=== PATIENT | male | born 1960 | race Caucasian/White ===

== ENCOUNTER 2018-04-16 22:23 | Emergency (ER) | payer OTHER, MEDICAID ==
[~2018-04-16] VITALS: Ht 188 cm; Wt 117.0 kg
[~2018-04-16 22:23] MED LIST: ACET500C PO; ALBU2TAB4 IN; CHOL10009 PO; CYA100I PO; DIVA250T3 PO; FLUN0.02; FOLI1TAB6 PO; LACTCAP3 PO; METH2.5T3 PO; METO-159 PO; OMEP20CA74 OR; TRAM50TA2 PO
[2018-04-16 22:27] VITALS: BP 128/93
== END 2018-04-17 01:07 | disposition home or self-care (01) ==
LOC: ER 22:23
DX: S62.634A Displaced fracture of distal phalanx of right ring finger, initial encounter for closed fracture (principal); E11.9 Type 2 diabetes mellitus without complications; I10 Essential (primary) hypertension; F17.210 Nicotine dependence, cigarettes, uncomplicated; Z88.2 Allergy status to sulfonamides; Z88.8 Allergy status to other drugs, medicaments and biological substances; Z79.899 Other long term (current) drug therapy; W18.39XA Other fall on same level, initial encounter; Y93.01 Activity, walking, marching and hiking; Y99.8 Other external cause status; Y92.89 Other specified places as the place of occurrence of the external cause
CPT/HCPCS: 29130; 73130

== ENCOUNTER 2019-03-02 13:05 | Emergency (ER) | payer MEDICAID, OTHER ==
[2019-03-02 13:15] VITALS: BP 152/82
== END 2019-03-02 15:23 | disposition home or self-care (01) ==
LOC: ER 13:05 → EDBD 13:05 → ER 15:23
DX: M25.562 Pain in left knee (principal); M25.561 Pain in right knee; M19.90 Unspecified osteoarthritis, unspecified site; E11.9 Type 2 diabetes mellitus without complications; E78.5 Hyperlipidemia, unspecified; I10 Essential (primary) hypertension; F17.210 Nicotine dependence, cigarettes, uncomplicated; Z88.8 Allergy status to other drugs, medicaments and biological substances; Z88.2 Allergy status to sulfonamides; Z79.899 Other long term (current) drug therapy; W18.40XA Slipping, tripping and stumbling without falling, unspecified, initial encounter; Y93.89 Activity, other specified; Y99.8 Other external cause status; Y92.89 Other specified places as the place of occurrence of the external cause
CPT/HCPCS: 73562

== ENCOUNTER 2020-03-14 20:38 | Emergency (ER) | payer MEDICAID, OTHER ==
[~2020-03-14] VITALS: Ht 188 cm; Wt 114.3 kg
[~2020-03-14 20:38] MED LIST changes: +DIVA250T12 PO; -DIVA250T3 PO; +METH2.5T PO; -METH2.5T3 PO
[2020-03-14] MEDS ORDERED: SODIUM CHLORIDE 0.9% 1,000 ML IV ONE (23:15)
[2020-03-14] MEDS ORDERED: ACETAMINOPHEN 325 MG TAB PO ONE (23:15)
[2020-03-14] MEDS ORDERED: cefTRIAXone 1GM/50ML D5W 50 ML IV ONE (23:15)
[2020-03-14 23:45] LABS: Basophils # (auto) 0.1 10 ^3/uL (0-0.2); Basophils % (auto) 0.6 % (0.0-2.0); Eosinophils # (auto) 0.3 10 ^3/uL (0-0.8); Eosinophils % (auto) 3.3 % (0.0-7.0); Hematocrit 38.7 % (41.0-53.0); Hemoglobin 12.9 g/dL (13.5-17.5); Lymphocytes # (auto) 2.9 10 ^3/uL (0.4-5.4); Lymphocytes % (auto) 28.6 % (10.0-50.0); Mean Corpuscular Hemoglobin 31.6 pg (28.0-32.0); Mean Corpuscular Hgb Conc. 33.5 g/dL (32.0-36.0); Mean Corpuscular Volume 94.5 fL (80.0-100.0); Monocytes # (auto) 0.9 10 ^3/uL (0-1.3); Monocytes % (auto) 8.5 % (0.0-12.0); Nucleated Red Blood Cells % 0.1 %; Platelet Count (auto) 451 10^3/uL (140-450); Red Blood Cells 4.09 10^6/uL (4.5-5.90); Red Cell Distribution Width 14.9 % (11.8-14.3); White Blood Cell 10.2 10^3/uL (4.4-10.8)
[2020-03-14 23:55] LABS: Albumin 3.8 g/dL (3.4-5.0); Calcium 10.3 mg/dL (8.5-10.1); Potassium 4.1 mmol/L (3.5-5.1)
[2020-03-14 23:58] LABS: BUN/Creatinine Ratio 27.5; Bilirubin, Total 0.3 mg/dL (0.2-1.0); Total Protein 9.1 g/dL (6.4-8.2)
[2020-03-15 01:57] VITALS: BP 123/48
== END 2020-03-15 02:14 | disposition home or self-care (01) ==
LOC: ER 20:38
DX: L03.113 Cellulitis of right upper limb (principal); E11.9 Type 2 diabetes mellitus without complications; I10 Essential (primary) hypertension; E78.5 Hyperlipidemia, unspecified; F17.210 Nicotine dependence, cigarettes, uncomplicated; Z88.2 Allergy status to sulfonamides; Z88.8 Allergy status to other drugs, medicaments and biological substances
CPT/HCPCS: 36415; 73200; 80053; 82962; 85025; 96365; 99284; J0696; J7030

== ENCOUNTER → 2021-11-08 | Day surgery (SDC) | payer MEDICARE, OTHER ==
[2021-11-04 13:59] LABS: Basophils # (auto) 0.1 10 ^3/uL (0-0.2); Eosinophils # (auto) 0.2 10 ^3/uL (0-0.8); Eosinophils % (auto) 4.2 % (0.0-7.0); Hematocrit 37.4 % (41.0-53.0); Hemoglobin 12.8 g/dL (13.5-17.5); Lymphocytes % (auto) 34.9 % (10.0-50.0); Mean Corpuscular Hgb Conc. 34.2 g/dL (32.0-36.0); Mean Corpuscular Volume 96.6 fL (80.0-100.0); Monocytes # (auto) 0.6 10 ^3/uL (0-1.3); Monocytes % (auto) 9.8 % (0.0-12.0); Neutrophils # (auto) 2.9 10 ^3/uL (1.6-8.6); Neutrophils % (auto) 50.1 % (37.0-80.0); Nucleated Red Blood Cells % 0.1 %; Red Blood Cells 3.88 10^6/uL (4.5-5.90); Red Cell Distribution Width 14.7 % (11.8-14.3); White Blood Cell 5.8 10^3/uL (4.4-10.8)
[2021-11-04 14:04] LABS: Urine Bacteria NONE SEEN /hpf (None Seen); Urine Blood Negative /uL (Negative); Urine Mucus FEW (None Seen); Urine Specific Gravity 1.027 (1.001-1.035); Urine WBC 1 /hpf (0 - 3)
[2021-11-04 14:14] LABS: INR 1.04 (0.9-1.15); Partial Thromboplastin Time 24.3 sec (23.6-33.0)
[2021-11-04 14:45] LABS: Albumin 3.5 g/dL (3.4-5.0); BUN/Creatinine Ratio 15.4; Calcium 8.9 mg/dL (8.5-10.1)
[2021-11-04 14:47] LABS: Bilirubin, Total 0.5 mg/dL (0.2-1.0); Total Protein 7.3 g/dL (6.4-8.2)
[~2021-11-08] VITALS: Ht 188 cm; Wt 107.0 kg
[~2021-11-08] MED LIST changes: +ALBUAER3 IN; +ARTISOL13 EACHEYE; +ASPI1TAB20 PO; +ATOR20TA PO; +CERT200K SC; +CHLO4SOL EX; +DOXY-112 PO; +DULO60CA PO; +FLUT110A IN; +FOLITAB22 OR; +GABA300C10 PO; +GLIP-204 PO; +HYD25TP PR; +HYDROIN8 EX; +INSLANTI SC; +LACT12LO26 EX; +LIDO5DIS21 TOP; +LISI20TA28 PO; +METF-370 PO; +MULT-1018 OR; +OMEG1CAP68 PO; +OMEP20TA PO; +OXY10CRT PO; +TRIA0.1O EX; +[UNRECOGNIZED DRUG - CODE] EX; +[UNRECOGNIZED DRUG - CODE] EX; +ceFAZolin 1GM/50ML 50 ML IV ONE
== END | disposition home or self-care (01) ==
LOC: SUR 07:31
PROVIDERS: ATTEND Orthopaedic Surgery
DX: M16.11 Unilateral primary osteoarthritis, right hip (principal); I10 Essential (primary) hypertension; E78.5 Hyperlipidemia, unspecified; E11.9 Type 2 diabetes mellitus without complications; J44.9 Chronic obstructive pulmonary disease, unspecified; Z79.899 Other long term (current) drug therapy; R42 Dizziness and giddiness; M07.69 Enteropathic arthropathies, multiple sites; R69 Illness, unspecified; Z20.822 Contact with and (suspected) exposure to COVID-19; Z72.0 Tobacco use; Z96.641 Presence of right artificial hip joint; Z01.812 Encounter for preprocedural laboratory examination; Z79.01 Long term (current) use of anticoagulants
CPT/HCPCS: 36415; 80053; 81001; 82962; 85025; 85610; 85730; 86850; 86900; 86901; J0690; U0003

== ENCOUNTER 2022-01-31 09:59 | Inpatient (IN) | payer MEDICARE, MEDICAID ==
[2022-01-30 12:38] LABS: Basophils # (auto) 0 10 ^3/uL (0-0.2); Basophils % (auto) 0.7 % (0.0-2.0); Eosinophils # (auto) 0.4 10 ^3/uL (0-0.8); Eosinophils % (auto) 7.6 % (0.0-7.0); Hematocrit 41.3 % (41.0-53.0); Hemoglobin 13.4 g/dL (13.5-17.5); Lymphocytes # (auto) 2.1 10 ^3/uL (0.4-5.4); Mean Corpuscular Hemoglobin 31.3 pg (28.0-32.0); Mean Corpuscular Hgb Conc. 32.4 g/dL (32.0-36.0); Mean Corpuscular Volume 96.7 fL (80.0-100.0); Monocytes # (auto) 0.5 10 ^3/uL (0-1.3); Monocytes % (auto) 8.3 % (0.0-12.0); Neutrophils # (auto) 2.7 10 ^3/uL (1.6-8.6); Neutrophils % (auto) 47.4 % (37.0-80.0); Red Blood Cells 4.27 10^6/uL (4.5-5.90); White Blood Cell 5.8 10^3/uL (4.4-10.8)
[2022-01-30 12:47] LABS: Urine Bacteria NONE SEEN /hpf (None Seen); Urine Blood Negative /uL (Negative); Urine Mucus FEW (None Seen); Urine Specific Gravity 1.027 (1.001-1.035); Urine WBC 1 /hpf (0 - 3)
[2022-01-30 13:00] LABS: INR 0.96 (0.9-1.15); Partial Thromboplastin Time 24.7 sec (24.6-33.4)
[2022-01-30 13:05] LABS: Albumin 3.8 g/dL (3.4-5.0); Calcium 9.2 mg/dL (8.5-10.1); Potassium 4.1 mmol/L (3.5-5.1)
[2022-01-30 13:09] LABS: BUN/Creatinine Ratio 17.8; Bilirubin, Total 0.6 mg/dL (0.2-1.0); Total Protein 7.8 g/dL (6.4-8.2)
[~2022-01-31] VITALS: Ht 188 cm; Wt 107.1 kg
[~2022-01-31 09:59] MED LIST changes: -ceFAZolin 1GM/50ML 50 ML IV ONE
[2022-01-31] MEDS ORDERED: TRANEXAMIC ACID 20 ML ONE (10:12)
[2022-01-31] MEDS ORDERED: ceFAZolin 1GM VL ONE (10:12)
[2022-01-31] MEDS: EPINEPHrine HCL 1 MG/1 ML AMP ONE ×2 (10:13→11:40)
[2022-01-31] MEDS ORDERED: VANCOMYCIN HCL 1000 MG VL ONE (10:14)
[2022-01-31] MEDS ORDERED: ceFAZolin 1GM/50ML 100 ML IV ONE (10:22)
[2022-01-31] MEDS: ROPIVACAINE 0.5% (5MG/ML) 20ML AMPULE IJ ONE ×2 (10:41→12:02)
[2022-01-31] MEDS ORDERED: TETRACAINE 1% INJ 2 ML VIAL IJ ONE (10:41)
[2022-01-31] MEDS ORDERED: MIDAZOLAM HCL 2MG/2ML 2ml VIAL (1mg/ml) ONE ×2 (10:48→12:06)
[2022-01-31] MEDS ORDERED: fentaNYL CITRATE 100 MCG/2 ML VL ONE (10:48)
[2022-01-31] MEDS ORDERED: MORPHINE SULF PF 5 MG/10 ML VIAL ONE (10:57)
[2022-01-31] MEDS ORDERED: NALBUPHINE HCL 10 MG/1ml INJECTION SUBCUT ONE (11:30)
[2022-01-31] MEDS ORDERED: NALOXONE HCL 0.4 MG/ML VIAL IV PRN (11:30)
[2022-01-31] MEDS: SODIUM CHLORIDE 0.9% 1,000 ML IV SCH ×2 (11:30→19:30)
[2022-01-31] MEDS ORDERED: ePHEDrine SULFATE 50 MG/ML AMP IV PRN (11:30)
[2022-01-31] MEDS ORDERED: DexAMETHasone SOD PHOS 10MG/1ML VIAL INJ IV PRN (11:30)
[2022-01-31] MEDS ORDERED: ONDANSETRON HCL 4 MG/2 ML VIAL IV PRN ×2 (11:30→13:30)
[2022-01-31] MEDS ORDERED: LABETALOL HCL 5 MG/ML 4ML SYRINGE IV PRN (11:30)
[2022-01-31] MEDS ORDERED: ACCU-CHEK COMFORT CURVE STRIP VI ONE (11:30)
[2022-01-31] MEDS ORDERED: hydrALAZINE HCL 20 MG/ML VL IV PRN (11:30)
[2022-01-31] MEDS ORDERED: oxyCODONE HCL 5MG TAB PO PRN ×2 (11:30)
[2022-01-31] MEDS ORDERED: HYDROmorphone HCL 2 MG/ML VL/or syr IV PRN ×2 (11:30→14:00)
[2022-01-31] MEDS ORDERED: diphenhdrAMINE HCL 50 MG/1 ML VL IV PRN (11:30)
[2022-01-31] MEDS ORDERED: MIDAZOLAM HCL 2MG/2ML 2ml VIAL (1mg/ml) IV PRN (11:30)
[2022-01-31] MEDS ORDERED: PROPOFOL 10 MG/ML 20 ML IV ONE (12:05)
[2022-01-31] MEDS ORDERED: DexAMETHasone SOD PHOS 10MG/1ML VIAL INJ ONE (12:05)
[2022-01-31] MEDS ORDERED: ALBUTEROL SULF 2.5 MG/0.5ML(0.5%) NEB SOLN NEB PRN (13:30)
[2022-01-31] MEDS ORDERED: ALBUTEROL SULF HFA 90MCG INH 200DOSE IN SCH (13:30)
[2022-01-31] MEDS: GABAPENTIN 300 MG CAP PO SCH ×2 (14:00→22:02)
[2022-01-31 17:54] VITALS: BP 151/101
[2022-01-31] MEDS ORDERED: ARTIFICIAL TEAR EACHEYE PRN (18:00)
[2022-01-31] MEDS: KETOROLAC TROMETH 30 MG/ML 1ML VIAL IV SCH ×2 (19:00→23:52)
[2022-01-31] MEDS: ACETAMINOPHEN 325 MG TAB PO SCH ×2 (19:01→23:59)
[2022-01-31] MEDS: ceFAZolin 2 GM in D5W 5% 100 ML IV SCH (19:15)
[2022-01-31 20:00] VITALS: BP 147/92
[2022-01-31 21:00] VITALS: BP 138/91
[2022-01-31 22:00] VITALS: BP_SYST 128; BP_SYST 137; BP_DIAS 82; BP_DIAS 83
[2022-01-31] MEDS ORDERED: ATORVASTATIN 20 MG TAB PO SCH (22:00)
[2022-01-31] MEDS ORDERED: PATIENTS OWN MEDICATION (Divalproex Sodium 250 MG) PO SCH (22:00)
[2022-01-31] MEDS ORDERED: OMEPRAZOLE 20MG/10ML ORAL SUSP PO SCH (22:00)
[2022-01-31] MEDS ORDERED: PATIENTS OWN MEDICATION (Metoprolol Tartrate 100 MG) PO SCH (22:00)
[2022-01-31] MEDS ORDERED: GLIPIZIDE 5 MG PO SCH (22:00)
[2022-01-31] MEDS: METOPROLOL TARTRATE 50 MG TAB PO SCH (22:03)
[2022-01-31] MEDS: glipiZIDE 5 MG TAB PO SCH (22:03)
[2022-01-31] MEDS: metFORMIN HYDROCHLORIDE 500 MG TAB PO SCH (22:04)
[2022-01-31 23:00] VITALS: BP 132/84
[2022-02-01] VITALS (17 sets, daily range): BP systolic 108–169; BP diastolic 8–114
[2022-02-01] MEDS: ceFAZolin 2 GM in D5W 5% 100 ML IV SCH (02:54)
[2022-02-01] MEDS: SODIUM CHLORIDE 0.9% 1,000 ML IV SCH ×2 (03:30→04:30)
[2022-02-01] MEDS: KETOROLAC TROMETH 30 MG/ML 1ML VIAL IV SCH ×2 (05:40→11:57)
[2022-02-01] MEDS: ACETAMINOPHEN 325 MG TAB PO SCH ×2 (05:40→11:57)
[2022-02-01] MEDS: GABAPENTIN 300 MG CAP PO SCH ×2 (05:40→13:32)
[2022-02-01 07:24] LABS: Basophils # (auto) 0 10 ^3/uL (0-0.2); Basophils % (auto) 0.1 % (0.0-2.0); Eosinophils # (auto) 0 10 ^3/uL (0-0.8); Eosinophils % (auto) 0.1 % (0.0-7.0); Hematocrit 31.7 % (41.0-53.0); Hemoglobin 10.5 g/dL (13.5-17.5); Lymphocytes # (auto) 1.1 10 ^3/uL (0.4-5.4); Lymphocytes % (auto) 9.7 % (10.0-50.0); Mean Corpuscular Hemoglobin 31.4 pg (28.0-32.0); Mean Corpuscular Hgb Conc. 33.1 g/dL (32.0-36.0); Mean Corpuscular Volume 94.8 fL (80.0-100.0); Monocytes # (auto) 1.1 10 ^3/uL (0-1.3); Monocytes % (auto) 9.7 % (0.0-12.0); Neutrophils # (auto) 8.9 10 ^3/uL (1.6-8.6); Neutrophils % (auto) 80.4 % (37.0-80.0); Nucleated Red Blood Cells % 0.1 %; Red Blood Cells 3.34 10^6/uL (4.5-5.90); Red Cell Distribution Width 13.7 % (11.8-14.3)
[2022-02-01 07:57] LABS: Potassium 4.1 mmol/L (3.5-5.1)
[2022-02-01] MEDS: metFORMIN HYDROCHLORIDE 500 MG TAB PO SCH (09:40)
[2022-02-01] MEDS: glipiZIDE 5 MG TAB PO SCH (09:40)
[2022-02-01] MEDS: METOPROLOL TARTRATE 50 MG TAB PO SCH (09:41)
[2022-02-01] MEDS ORDERED: APIXABAN 2.5 MG TAB PO SCH (10:00)
[2022-02-01] MEDS ORDERED: PATIENTS OWN MEDICATION (Duloxetine Hcl (Cymbalta) 60 MG) PO SCH (10:00)
[2022-02-01] MEDS ORDERED: PANTOPRAZOLE 40 MG TAB PO SCH (10:00)
[2022-02-01] MEDS ORDERED: CYANOCOBALAMIN (B-12) 1000 MCG/1 ML VIAL SUBCUT SCH (10:00)
[2022-02-01] MEDS ORDERED: PATIENTS OWN MEDICATION (Folic Acid 1 MG) PO SCH (10:00)
[2022-02-01] MEDS ORDERED: LIDOCAINE 5% TOPICAL PATCH TOP SCH (10:00)
[2022-02-01] MEDS ORDERED: FOLIC ACID 1 MG TAB PO SCH (10:00)
[2022-02-01] MEDS ORDERED: DOXYCYCLINE MONOHYDRATE 50 MG PO SCH (10:00)
[2022-02-01] MEDS ORDERED: DULoxetine HCL 30 MG CAP PO SCH (10:00)
[2022-02-01] MEDS ORDERED: LISINOPRIL 20 MG TAB PO SCH (10:00)
[2022-02-01] MEDS ORDERED: CYANOCOBALAMIN SC SCH (10:00)
[2022-02-01] MEDS ORDERED: FLUTICASONE PROPIONATE IN SCH (10:00)
== END 2022-02-01 15:06 | disposition home health service (06) | DRG 470 ==
LOC: SUR 09:59 → OVERFLOW 13:33 → TELE 14:02 → TELE-WESTW 17:15
PROVIDERS: ADMIT Orthopaedic Surgery; ATTEND Orthopaedic Surgery
PROC: 0SR903Z Replacement of Right Hip Joint with Ceramic Synthetic Substitute, Open Approach (ICD-10-PCS; principal; 2022-01-31 10:57)
DX: M16.11 Unilateral primary osteoarthritis, right hip (principal); I10 Essential (primary) hypertension
CPT/HCPCS: 36415; 72170; 73501; 76000; 80048; 80053; 81001; 82962; 85025; 85610; 85730; 86850; 86900; 86901; 94660; 97110; 97116; 97163; 97530; C1776; G0378; J0171; J0690; J1100; J1885; J2250; J2704; J7060

== ENCOUNTER 2023-12-06 09:01 | Emergency (ER) | payer MEDICAID, MEDICARE, OTHER ==
[~2023-12-06] VITALS: Ht 188 cm; Wt 106.3 kg
[~2023-12-06 09:01] MED LIST changes: +ALBU2TAB11 IN; -ALBU2TAB4 IN; -DOXY-112 PO; +DOXY-267 PO; -DULO60CA PO; +DULO60CA41 PO; +FOLI-119 PO; -FOLI1TAB6 PO; +GABA-1250 PO; -GABA300C10 PO; -LISI20TA28 PO; +LISI20TA56 PO
[2023-12-06 09:29] VITALS: BP 141/84; PULSE 64; RESP 16; TEMP 97.8; O2SAT 99
[2023-12-06] MEDS ORDERED: CEPH500C PO (09:44)
== END 2023-12-06 09:49 | disposition home or self-care (01) ==
LOC: ER 09:01
DX: S51.812A Laceration without foreign body of left forearm, initial encounter (principal); I10 Essential (primary) hypertension; E11.9 Type 2 diabetes mellitus without complications; E78.5 Hyperlipidemia, unspecified; M19.90 Unspecified osteoarthritis, unspecified site; F17.210 Nicotine dependence, cigarettes, uncomplicated; F15.90 Other stimulant use, unspecified, uncomplicated; Z88.8 Allergy status to other drugs, medicaments and biological substances; Z79.899 Other long term (current) drug therapy; W26.8XXA Contact with other sharp object(s), not elsewhere classified, initial encounter; Y93.89 Activity, other specified; Y92.89 Other specified places as the place of occurrence of the external cause; Y99.8 Other external cause status
CPT/HCPCS: 12002

== ENCOUNTER 2023-12-16 08:47 | Emergency (ER) | payer MEDICARE, MEDICAID ==
[~2023-12-16] VITALS: Ht 188 cm; Wt 107.3 kg
[~2023-12-16 08:47] MED LIST changes: +CEPH500C PO
[2023-12-16 09:54] VITALS: BP 131/86; PULSE 65; RESP 16; TEMP 98.6; O2SAT 99
[2023-12-16] MEDS ORDERED: MUPI2OIN2 EX (10:01)
== END 2023-12-16 10:06 | disposition home or self-care (01) ==
LOC: ER 08:47
DX: S51.812D Laceration without foreign body of left forearm, subsequent encounter (principal); I10 Essential (primary) hypertension; E11.9 Type 2 diabetes mellitus without complications; M19.90 Unspecified osteoarthritis, unspecified site; E78.5 Hyperlipidemia, unspecified; F17.210 Nicotine dependence, cigarettes, uncomplicated; F19.10 Other psychoactive substance abuse, uncomplicated; Z48.02 Encounter for removal of sutures; Z88.8 Allergy status to other drugs, medicaments and biological substances; Z88.2 Allergy status to sulfonamides; X58.XXXD Exposure to other specified factors, subsequent encounter

== ENCOUNTER 2024-05-15 15:35 | Inpatient (IN) | payer OTHER, MEDICARE, MEDICAID ==
[~2024-05-15] VITALS: Ht 182.9 cm; Wt 110.1 kg
[~2024-05-15 15:35] MED LIST changes: +MUPI2OIN2 EX
--- NOTE | 2024-05-15 16:11 | ED.PDOC ---
Musculoskeletal HPI Comments HPI: Poor Historian. 63-year-old male presents to emergency department for evaluation of right hand dorsum pain in swelling and redness for one-week that is progressively getting worse. Pain is worse with trying to close his fist or hold something. Denies any actual fall or trauma. Patient was seen approximately a week ago at that time and he was told he has a cyst based on a x-ray of the hand but he said his swelling is getting worse. Denies any other acute symptoms. Patient reports allergies to Adalimumab, Sulfa antibiotics, and Sulfasalazine Vital Signs BP: 145/91 HR:69 Temp:98.4 F SPO2:97% RA RR:18 Past medical history: DM, hyperlipidemia, HTN, arthritis Past surgical history: Remote Right hand surgery REVIEW OF SYSTEMS: CONSTITUTIONAL: Denies acute: fever, diaphoresis, chills, generalized weakness. HEAD: Denies acute: headache, photophobia Eyes: Denies acute: Double vision, vision loss, eye pain, eye discharge. EARS: Denies acute: tinnitus, hearing loss, ear discharge, ear pain, THROAT: Denies acute: sore throat, swelling, difficulty swallowing , pain with swallowing, change in voice. NECK: Denies acute: neck pain, neck swelling, stiff neck. HEART: Denies acute : chest pain, palpitations, LUNGS: Denies acute: SOB, wheezing, cough, hemoptysis ABDOMEN: Denies acute: abdominal pain, Nausea, Vomiting, diarrhea, melena , hematemesis, hematochezia SKIN: Denies acute: rash, lesions, itchiness. EXTREMITIES: Denies acute: calf pain, numbness, tingling, weakness, Denies acute: Low back pain. Neuro: Denies acute: focal neurological deficit, motor or sensory focal neurological deficit, tremors, seizure like activity, confusion, dizziness, change in mental status, loss of bowel or bladder function, cauda equina like symptoms. : Denies acute: dysuria, hematuria, flank pain, increase in urinary frequency. PSYCH: Denies acute: hallucination, suicidal ideation, homicidal ideation. PHYSICAL EXAM: General: no acute distress, awake and alert. Head: normocephalic, atraumatic. Neck: supple, trachea is midline, no swelling. Throat: Normal phonation. Eyes:, no erythema, no purulent discharge, no proptosis, no icterus. Heart: regular rate, regular rhythm, no significant murmur appreciated. Lungs: no apparent respiratory distress, Able to speak in full sentences. No wheezing, no rhonchi, no crackles. No stridors Clear to auscultation bilaterally. Abdomen: non tender to palpation, non distended, soft, no guarding, no rebound, + bowel sounds. Neuro: Awake, Alert, oriented to name, self, situation, follows commands GCS=15. Speech is normal. Skin: no petechia, no purpura, no cyanosis, non-pale, not jaundice. Lower extremities: --trace bilateral- Pitting edema no deformity, no focal swelling, no calf TTP. Makes eye contact. moves all four extremities. Face: no apparent facial droop. Evaluation of the right hand or his complaint is. There is noted dorsum of the right hand swelling and redness and tenderness to palpation. Patient is neurovascularly intact in the affected extremity . Good motor strength. 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 Radial pulses palpable. Ambulating in the ED independently. Chief Complaint: Upper Extremity Time Seen by MD: 16:05 Primary Care Provider: unknown Reviewed Notes: Nurses Notes, Allergies Allergies: Coded Allergies: Sulfasalazine (Unverified Allergy, Intermediate, hematuria, 11/04/21) Adalimumab (Verified Allergy, Unknown, 01/13/15) Sulfa Antibiotics (Verified Allergy, Unknown, 02/14/16) Home Meds Active Scripts Cephalexin Monohydrate (Cephalexin) 500 Mg Cap, 1 CAP PO QID, #28 CAP Prov:MICHAEL REICH 12/06/23 Reported Medications Topiramate (Topiramate) 50 Mg Tab, 3 TAB PO HS, #60 TAB 1 Refill 05/16/24 Ferrous Sulfate (Ferrous Sulfate) 325 Mg Tab, 325 MG PO EOD for 30 Days, MG 05/16/24 Artificial Tear Solution (ARTIFICIAL TEARS) Tears Mackenzie, 1 DROP EACHEYE QIDPRN for DRY EYES, ML 11/04/21 Flunisolide (Nasal) (Flunisolide) 0.025 % Spr, 0.025 % NA, SPRAY 11/04/21 Multiple Vitamin (Multivitamins) Tab, 1 OR, TAB 11/04/21 Chester-3 Fatty Acids (Fish Oil Chester-3 1000 mg) 1 Cap Cap, 1 CAP PO, CAP 11/04/21 Oxycodone Hcl (OxyCONTIN ER Tablet) 10 Mg Tb, 10 MG PO QID, TAB 11/04/21 Lisinopril (Lisinopril) 20 Mg Tab, 20 MG PO DAILY, TAB 11/04/21 Metformin Hydrochloride (Metformin Hcl) 500 Mg Tab, 500 MG PO BID, TAB 11/04/21 Aspirin (Aspir-81) 81 Mg Tab, 81 MG PO DAILY@BREAKFAST, TAB 11/04/21 Certolizumab Pegol (Cimzia) 200 Mg/Ml Kit, 1 ML SC bimonthly, KIT 11/04/21 Gabapentin (Gabapentin) 300 Mg Cap, 300 MG PO TID, #3 CAP 11/04/21 Benzoyl Peroxide-Hydrocortison (Benzolyl Peroxide Forte- 7.5-1 %) 1 Lot Lot, 1 LOT EX, BOTTLE 11/04/21 Chlorhexidine Gluconate (GNP ANTISEPTIC SKIN CLEAN) 4 % Mackenzie, 4 % EX, ML 11/04/21 Albuterol Sulfate (VENTOLIN MDI) 90 Mcg Ih, 90 MCG IN PRN, INH 11/04/21 Fluticasone Propionate (FLOVENT HFA 110Mcg INH) 110 Mcg Ih, 50 MCG IN DAILY, INH 11/04/21 Lidocaine (LIDODERM 5% TOPICAL PATCH) 1 Patch Ph, 1 PATCH TOP DAILY, PATCH 11/04/21 Insulin Glargine (Lantus) 100 Unit/Ml Inj, 25 UNIT SC DAILY, INJ 11/04/21 Doxycycline Monohydrate (Doxycycline Monohydrate) 100 Mg Cap, 50 MG PO DAILY, CAP 11/04/21 Methotrexate (Methotrexate) 2.5 Mg Tab, 2.5 MG PO QWEEKLY, #8 TAB 11/04/21 Metoprolol Tartrate (Metoprolol Tartrate) 100 Mg Tab, 100 MG PO BID, TAB 11/04/21 Atorvastatin Calcium (Lipitor) 20 Mg Tab, 20 MG PO HS, TAB 11/04/21 Glipizide (Glipizide Xl) 5 Mg Tab, 5 MG PO BID, TAB 11/04/21 Duloxetine Hcl (Cymbalta) 60 Mg Cap, 60 MG PO DAILY, CAP 11/04/21 Albuterol Sulfate (Albuterol Sulfate) 2 Mg Tab, 90 MCG IN Q4HP PRN for FOR COUGH, MG 01/14/15 Methotrexate (Methotrexate) 2.5 Mg Tab, 6 TAB PO QWEEKLY, #24 TAB 1 Refill 01/14/15 Cholecalciferol (Vitamin D3) 1,000 Unit Cap, 1000 UNIT PO DAILY, CAP 01/14/15 Lactobacillus (ACIDOPHILUS) Cap, 2 MG PO DAILY, CAP 01/14/15 Vitamin B12 (Vitamin B-12) 1,000 Mcg/1 Ml Ij, 6 MCG PO DAILY 01/14/15 Omeprazole (PRILOSEC) 20 Mg Cap, 20 MG OR BID, CAP 01/14/15 Metoprolol Tartrate (Metoprolol Tartrate) 100 Mg Tab, 150 MG PO HS for 30 Days, MG 01/14/15 Flunisolide (Nasal) (Flunisolide) 0.025 % Spr, 1 SPRAY NA BID, #25 ML 3 Refills 01/14/15 Divalproex Sodium (Divalproex Sodium) 250 Mg Tab, 250 MG PO BID, TAB 01/14/15 Acetaminophen (Acetaminophen) 500 Mg Cap, 500 MG PO TIDP PRN for MILD PAIN for 30 Days, MG 01/14/15 Discontinued Reported Medications Menthol-Methyl Salicylate (Holly (TIGER BALM LINIMENT) Liniment Liq, 1 EX, LIQ 11/04/21 Triamcinolone Acetonide (Triamcinolone Acetonide) 0.1 % Oin, 0.1 % EX, OIN 11/04/21 Lactic Acid (Ammonium Lactate) 12 % Lot, 12 % EX, BOTTLE 11/04/21 Hydrophilic Ointment (Hydrophilic) Oin, 1 EX, OIN 11/04/21 Folic Ysuw-Dpfsvdzclx-Moumoewl (Folbic) Tab, 1 OR, TAB 11/04/21 Omeprazole (Gnp Omeprazole) 20 Mg Tab, 20 MG PO BID, TAB 11/04/21 Hydrocortone (Hydrocortisone 2.5%) 1 Applic Ap, 1 APPLIC CA, APPLIC 11/04/21 Tramadol Hcl (Tramadol Hcl) 50 Mg Tab, 50 MG PO DAILY, TAB 11/04/21 Tramadol Hcl (Tramadol Hcl) 50 Mg Tab, 50 MG PO Q8HP PRN for MILD PAIN, MG 01/14/15 Folic Acid (Folic Acid) 1 Mg Tab, 1 MG PO DAILY for 30 Days, MG 01/14/15 Information Source: Patient Mode of Arrival: Ambulatory Past Medical History PAST MEDICAL HISTORY: Arthritis, DM, High Lipids, HTN Surgical History: Denies all surgeries Family History Family History: Reviewed,noncontributory to illness, No family hx of HTN Social History Smoker: Cigarettes, Less Than 1 Pack/Day Alcohol: Rarely Drugs: Other Lives In: Home Was a procedure done? Was a procedure done?: No Differential Diagnosis EXT Differential Diagnosis: Cellulitis, CHF, Deep Vein Thrombosis, Compartment Syndrome, Fracture, Sprain, Dislocation, Gout, Contusion, Strain, Septic, Neurovascular injury, Arthritis, Bursitis X-Ray, Labs, Meds, VS Vital Signs Date Time Temp Pulse Resp B/P (MAP) Pulse Ox O2 Delivery O2 Flow Rate FiO2 05/15/24 22:48 82 20 159/86 96 98 05/15/24 22:46 18 96 Room Air* 0 05/15/24 22:19 75 159/86 05/15/24 22:11 75 16 154/86 (108) 98 05/15/24 21:35 Room Air* 0 05/15/24 19:40 60 16 152/95 (114) 98 05/15/24 16:08 98.4 69 18 145/91 (109) 97 Lab Test 05/15/24 22:10 05/15/24 16:35 Range/Units POC Glucose 124 H 70-106 mg/dl White Blood Count 10.2 4.4-10.8 10^3/uL Red Blood Count 3.96 L 4.5-5.90 10^6/uL Hemoglobin 12.7 L 13.5-17.5 g/dL Hematocrit 37.3 L 41.0-53.0 % Mean Corpuscular Volume 94.2 80.0-100.0 fL Mean Corpuscular Hemoglobin 32.0 28.0-32.0 pg Mean Corpuscular Hemoglobin Concent 34.0 32.0-36.0 g/dL Red Cell Distribution Width 13.8 11.8-14.3 % Platelet Count 275 140-450 10^3/uL Mean Platelet Volume 7.0 6.9-10.8 fL Neutrophils (%) (Auto) 68.2 37.0-80.0 % Lymphocytes (%) (Auto) 15.7 10.0-50.0 % Monocytes (%) (Auto) 10.1 0.0-12.0 % Eosinophils (%) (Auto) 5.5 0.0-7.0 % Basophils (%) (Auto) 0.5 0.0-2.0 % Neutrophils # (Auto) 6.9 1.6-8.6 10 ^3/uL Lymphocytes # (Auto) 1.6 0.4-5.4 10 ^3/uL Monocytes # (Auto) 1.0 0-1.3 10 ^3/uL Eosinophils # (Auto) 0.6 0-0.8 10 ^3/uL Basophils # (Auto) 0.1 0-0.2 10 ^3/uL Nucleated Red Blood Cells 0.1 % Erythrocyte Sedimentation Rate 43 H 0-20 mm/hr Sodium Level 140 136-145 mmol/L Potassium Level 4.3 3.5-5.1 mmol/L Chloride Level 108 H 98-107 mmol/L Carbon Dioxide Level 24 20-31 mmol/L Anion Gap 8 5-15 Blood Urea Nitrogen 19 9-23 mg/dL Creatinine 1.08 0.700-1.30 mg/dL Glomerular Filtration Rate Calc 76 >90 mL/min BUN/Creatinine Ratio 17.6 10.0-20.0 Serum Glucose 70 L 74-106 mg/dL Lactic Acid Level 1.0 0.4-2.0 mmol/L Calcium Level 10.2 8.7-10.4 mg/dL Total Bilirubin 0.6 0.2-1.0 mg/dL Aspartate Amino Transferase (AST) < 8 L 13-40 U/L Alanine Aminotransferase (ALT) 16 7-40 U/L Alkaline Phosphatase 145 H 46-116 U/L C-Reactive Protein High Sensitivity 4.63 H <1.0 mg/dL B-Type Natriuretic Peptide 108.10 0-100 pg/mL Total Protein 7.3 5.7-8.2 g/dL Albumin 4.3 3.2-4.8 g/dL [address] [address] Ph: [phone] DIAGNOSTIC IMAGING Diagnostic Imaging Report : [id number] Signed PATIENT: WIL BLAND AACCT: [id number] UNIT: [id number] : 1960 LOC: ER ROOM / BED: / AGE / SEX: 63 / M ADM STATUS: REG ER SERVICE 3116 ORDERING PHYSICIAN: MOO DAY DO PROCEDURE(s): RUECT - RT UPPER EXTREMITY WITH CONT REASON: PAIN SWELLING RIGHT HAND ORDER NUMBER(s): [id number], ACCESSION NUMBER(s): [id number] Procedure: CT RT UPPER EXTREMITY WITH CONT 05/15/2024 09:46 PM Indication: PAIN SWELLING RIGHT HAND Comparison Study: None. Technique: Axial images were obtained and reformatted in coronal and sagittal planes of the right hand. All CT scans at this medical facility are performed using dose modulation techniques as appropriate to a performed exam including the following: Automated exposure control was utilized; adjustment of the MA and/or KV according to patient size; and use of iterative reconstruction technique. CT Dose: CTDI volume is 7.75 mGy. Dose-length product is 238.08 mGy*cm FINDINGS: Bones: There appears to be a subluxation of the lunate. There is arthritic changes at the carpometacarpal joint of the thumb and index finger can not exclude small fracture. Minimally displaced fracture of the capitate. Soft tissues: Unremarkable. IMPRESSION: 1. Subluxation of the lunat on the right e. 2. Nondisplaced fracture through the capitate on the right. 3. Arthritic changes of the carpometacarpal joint of the thumb and index finger. Osteoarthritic changes versus small avulsion fractures can not be distinguished. ATED BY: KRISHNA OROSCO Jr., DO DICTATED DATE/TIME: 05/15/242236 SIGNED BY: KRISHNA OROSCO Jr., SIGNED DATE/TIME: 05/15/242236 CC: Time of 1ST Reevaluation: 16:09 Reevaluation 1ST: Unchanged Patient Education/Counseling: Diagnosis, Treatment Family Education/Counseling: No Family Present Comments Patient presented with the above HPI.---right hand pain and swelling and redness---workup was initiated. patient was found with the above mentioned diagnosis. Patient was given: Vancomycin and Zosyn. Patient ED course and VS have been stabilized. Patient has been reassessed in e ED and remained in a stable condition. Pertinent incidental findings were discussed with the patient and/or family. Patient/family voices understanding and is agreeable with plan. Patient has been observed in the ED adequate length of time to insure improvement/stability. patient was admitted to the medicine team for further evaluation and treatment of their presentation. All the reports of any imaging studies that were ordered by myself were reviewed by myself. Departure 1 Departure Time of Disposition: 20:29 Impression: Primary Impression: Cellulitis of right hand Disposition: ADMITTED INPATIENT Admit to: Tele Condition: Guarded Discharged With: Self Critical Care Note Critical Care Time?: No I personally scribed for MOO DAY DO ([email or web address]) on 05/15/24 at 16:11. Electronically submitted by Lucille De ([facility]). I personally scribed for MOO DAY DO ([email or web address]) on 05/15/24 at 16:47. Electronically submitted by Lucille De ([facility]). MOO DAY DO May 15, 2024 16:11
[2024-05-15 17:00] LABS: Basophils # (auto) 0.1 10 ^3/uL (0-0.2); Basophils % (auto) 0.5 % (0.0-2.0); Eosinophils # (auto) 0.6 10 ^3/uL (0-0.8); Eosinophils % (auto) 5.5 % (0.0-7.0); Hematocrit 37.3 % (41.0-53.0); Hemoglobin 12.7 g/dL (13.5-17.5); Lymphocytes # (auto) 1.6 10 ^3/uL (0.4-5.4); Lymphocytes % (auto) 15.7 % (10.0-50.0); Mean Corpuscular Volume 94.2 fL (80.0-100.0); Monocytes % (auto) 10.1 % (0.0-12.0); Neutrophils # (auto) 6.9 10 ^3/uL (1.6-8.6); Neutrophils % (auto) 68.2 % (37.0-80.0); Nucleated Red Blood Cells % 0.1 %; Platelet Count (auto) 275 10^3/uL (140-450); Red Blood Cells 3.96 10^6/uL (4.5-5.90); Red Cell Distribution Width 13.8 % (11.8-14.3); White Blood Cell 10.2 10^3/uL (4.4-10.8)
[2024-05-15 17:40] LABS: Alanine Aminotransferase 16 U/L (7-40); Albumin 4.3 g/dL (3.2-4.8); Alkaline Phosphatase 145 U/L (46-116); Anion Gap 8 (5-15); Aspartate Aminotransferase < 8 U/L (13-40); BUN/Creatinine Ratio 17.6 (10.0-20.0); Blood Urea Nitrogen 19 mg/dL (9-23); Calcium 10.2 mg/dL (8.7-10.4); Carbon Dioxide 24 mmol/L (20-31); Chloride 108 mmol/L (98-107); Glucose 70 mg/dL (74-106); Potassium 4.3 mmol/L (3.5-5.1); Sodium 140 mmol/L (136-145)
[2024-05-15 17:41] LABS: Bilirubin, Total 0.6 mg/dL (0.2-1.0); Total Protein 7.3 g/dL (5.7-8.2)
[2024-05-15 17:49] LABS: CRP High Sensitivity 4.63 mg/dL (<1.0)
[2024-05-15 17:50] LABS: Erythrocyte Sedimentation Rate 43 mm/hr (0-20)
[2024-05-15] MEDS ORDERED: VANCOMYCIN PER PHARMACY 0 MG IV SCH (18:15)
[2024-05-15] MEDS ORDERED: MORPHINE SULFATE INJ 2 MG/ml SYRG IV PRN ×2 (21:30→23:15)
[2024-05-15] MEDS ORDERED: DOCUSATE SOD 100 MG CAP PO PRN (21:30)
[2024-05-15] MEDS ORDERED: ONDANSETRON HCL 4 MG/2 ML VIAL IV PRN (21:30)
[2024-05-15] MEDS ORDERED: DEXTROSE (50%) 50ML SYRG IV PRN (21:30)
[2024-05-15] MEDS ORDERED: ALBUTEROL SULF 2.5 MG/0.5ML(0.5%) NEB SOLN NEB PRN (21:30)
[2024-05-15] MEDS: PIPERACILLIN-TAZOB 3.375GM 100 ML IV ONE (21:37)
[2024-05-15] MEDS: InsuLIN REG 1unit/0.01ml Soln (100units/ml) SC SCH (22:00)
[2024-05-15] MEDS: SODIUM CHLOR 0.9% PF (SALINE LOCK) 10ML VIAL/SYR IV SCH (22:06)
[2024-05-15] MEDS: IOHEXOL 300 MG/ML 100ML BOTTLE IJ ONE (22:06)
[2024-05-15] MEDS: ACCU-CHEK COMFORT CURVE STRIP VI SCH (22:13)
[2024-05-15] MEDS: VANCOMYCIN 1GM/200ML PREMIX 200 ML IV SCH (22:16)
[2024-05-15] MEDS: ATORVASTATIN 20 MG TAB PO SCH (22:19)
[2024-05-15] MEDS: METOPROLOL TARTRATE 50 MG TAB PO SCH (22:19)
--- NOTE | 2024-05-15 22:40 | DVH ---
Procedure: CT RT UPPER EXTREMITY WITH CONT 05/15/2024 09:46 PM Indication: PAIN SWELLING RIGHT HAND Comparison Study: None. Technique: Axial images were obtained and reformatted in coronal and sagittal planes of the right calero d. All CT scans at this medical facility are performed using dose modulation techniques as appropriate t o a performed exam including the following: Automated exposure control was utilized; adjustment of th e MA and/or KV according to patient size; and use of iterative reconstruction technique. CT Dose: CTDI volume is 7.75 mGy. Dose-length product is 238.08 mGy*cm FINDINGS: Bones: There appears to be a subluxation of the lunate. There is arthritic changes at the carpometac arpal joint of the thumb and index finger can not exclude small fracture. Minimally displaced fractu re of the capitate. Soft tissues: Unremarkable. IMPRESSION: 1. Subluxation of the lunat on the right e. 2. Nondisplaced fracture through the capitate on the right. 3. Arthritic changes of the carpometacarpal joint of the thumb and index finger. Osteoarthritic hall es versus small avulsion fractures can not be distinguished.
[2024-05-15 22:48] VITALS: BP 159/86; PULSE 82; RESP 20; O2SAT 96
--- NOTE | 2024-05-15 23:11 | DVHHP2 ---
History of Present Illness Reason for Visit: Cellulitis of right hand History of Present Illness The patient is a 63 year male with past medical history of DM, hyperlipidemia, arthritis, and hypertension who presented to [facility] ED with complaint of right hand pain. Patient reports symptoms progressively get worse for the past 1 week with swelling and redness, getting worse that prompted this visit. Patient was seen and evaluated in the ED, laboratory data shows 10.2, platelets 275, sodium 140, potassium 4.3, BUN 19, creatinine 1.08, glucose 70, CRP 4.63, ESR 43, BNP 108.10. Upper extremity CT revealing nondisplaced fracture through the capitate on the right. Patient was started on IV antibiotic regimen vancomycin, please medication orders section in the computer. On my assessment, patient denied chest pain, no headache, no dizziness, no diaphoresis, no shortness of breath, no nausea, no vomiting, no fever, no chills. Patient was admitted for further evaluation and medical management. Past Medical History DM, hyperlipidemia, HTN, arthritis Past Surgical History Denies all surgeries Family History Reviewed, noncontributory to the management of this case. Past Social History The patient lives at home, denies smoking, alcohol or illicit drugs abuse. Review of Systems Constitutional: No: Fever, Chills, Sweats, Weakness, Malaise, Other Eyes: No: Pain, Vision change, Conjunctivae inflammation, Eyelid inflammation, Other, Redness ENT: No: Ear pain, Ear discharge, Nose pain, Nose discharge, Nose congestion, Mouth pain, Mouth swelling, Throat pain, Throat swelling, Other Respiratory: No: Cough, Dry, Shortness of breath, SOB with excertion, Wheezing, Hemoptysis, Pleuritic Pain, Sputum, Wheezing, Other Cardiovascular: No: Chest Pain, Palpitations, Orthopnea, Paroxysmal Noc. Dyspnea, Edema, Lt Headedness, Other Gastrointestinal: No: Nausea, Vomiting, Abdominal Pain, Diarrhea, Constipation, Melena, Hematochezia, Other Genitourinary: No Dysuria, No Frequency, No Incontinence, No Hematuria, No Retention, No Other Musculoskeletal: other (Right hand swelling), arm pain; No: neck pain, shoulder pain, back pain, hand pain, leg pain, foot pain Skin: No: Rash, Lesions, Jaundice, Bruising, Other Neurological: No: Weakness, Numbness, Incoordination, Change in speech, Confusion, Seizures, Other Allergies: Coded Allergies: Sulfasalazine (Unverified Allergy, Intermediate, hematuria, 11/04/21) Adalimumab (Verified Allergy, Unknown, 01/13/15) Sulfa Antibiotics (Verified Allergy, Unknown, 02/14/16) Medications Current Medications Medications Dose Ordered Sig/Erica Route Start Time Stop Time Status Last Admin Dose Admin Vancomycin HCl 0 ml @ 0 mls/hr UD IV 05/15/24 18:15 Aspirin 81 mg DAILY PO 05/16/24 10:00 Atorvastatin Calcium 20 mg HS PO 05/15/24 22:00 05/15/24 22:19 20 MG Albuterol 2.5 mg Q4HPRN PRN NEB 05/15/24 21:30 Famotidine 20 mg DAILY IV 05/16/24 10:00 Metoprolol Tartrate 50 mg BID PO 05/15/24 22:00 05/15/24 22:19 50 MG Hydralazine HCl 10 mg Q6HP PRN IV 05/15/24 21:30 Diagnostic Test (Pha) 1 strip ACHS 05/15/24 22:00 05/15/24 22:13 1 STRIP Insulin Human Regular ACHS SC 05/15/24 22:00 Dextrose 50 ml UD PRN IV 05/15/24 21:30 Sodium Chloride 10 ml Q8HR IV 05/15/24 22:00 05/15/24 22:06 10 ML Acetaminophen/ Hydrocodone Bitart 1 tab Q4HP PRN PO 05/15/24 21:30 Ondansetron HCl 4 mg Q4HP PRN IV 05/15/24 21:30 Docusate Sodium 100 mg BIDPRN PRN PO 05/15/24 21:30 Multivitamins 1 tab DAILY PO 05/16/24 10:00 Acetaminophen 650 mg Q6HP PRN PO 05/15/24 21:30 Morphine Sulfate 2 mg Q4HPRN PRN IV 05/15/24 21:30 Exam Vital Signs Vital Signs Date Time Temp Pulse Resp B/P (MAP) Pulse Ox O2 Delivery O2 Flow Rate FiO2 05/15/24 22:48 82 20 159/86 96 98 05/15/24 22:46 Room Air* 0 05/15/24 16:08 98.4 General Appearance: Alert, Oriented X3, Cooperative, No acute distress HEENT: Atraumatic, PERRLA, EOMI, Mucous membr. moist/pink Respiratory: Clear to auscultation, Normal air movement Cardiovascular: Regular rate, Normal S1, Normal S2, No murmurs Abdominal: Normal bowel sounds, Soft, No tenderness, No hepatospenomegaly, No masses Extremities: No clubbing, No cyanosis, No edema, Normal pulses, No tenderness/swelling Skin: No rashes, No breakdown, No significant lesion Neuro: Normal gait, Normal speech, Strength at 5/5 X4 ext, Normal tone, Sensation intact, Cranial nerves 3-12 NL, Reflexes 2+ Psych/Mental Status: Mental status NL, Mood NL Labs/Xrays Labs Test 05/15/24 22:10 05/15/24 16:35 Range/Units POC Glucose 124 H 70-106 mg/dl White Blood Count 10.2 4.4-10.8 10^3/uL Red Blood Count 3.96 L 4.5-5.90 10^6/uL Hemoglobin 12.7 L 13.5-17.5 g/dL Hematocrit 37.3 L 41.0-53.0 % Mean Corpuscular Volume 94.2 80.0-100.0 fL Mean Corpuscular Hemoglobin 32.0 28.0-32.0 pg Mean Corpuscular Hemoglobin Concent 34.0 32.0-36.0 g/dL Red Cell Distribution Width 13.8 11.8-14.3 % Platelet Count 275 140-450 10^3/uL Mean Platelet Volume 7.0 6.9-10.8 fL Neutrophils (%) (Auto) 68.2 37.0-80.0 % Lymphocytes (%) (Auto) 15.7 10.0-50.0 % Monocytes (%) (Auto) 10.1 0.0-12.0 % Eosinophils (%) (Auto) 5.5 0.0-7.0 % Basophils (%) (Auto) 0.5 0.0-2.0 % Neutrophils # (Auto) 6.9 1.6-8.6 10 ^3/uL Lymphocytes # (Auto) 1.6 0.4-5.4 10 ^3/uL Monocytes # (Auto) 1.0 0-1.3 10 ^3/uL Eosinophils # (Auto) 0.6 0-0.8 10 ^3/uL Basophils # (Auto) 0.1 0-0.2 10 ^3/uL Nucleated Red Blood Cells 0.1 % Erythrocyte Sedimentation Rate 43 H 0-20 mm/hr Sodium Level 140 136-145 mmol/L Potassium Level 4.3 3.5-5.1 mmol/L Chloride Level 108 H 98-107 mmol/L Carbon Dioxide Level 24 20-31 mmol/L Anion Gap 8 5-15 Blood Urea Nitrogen 19 9-23 mg/dL Creatinine 1.08 0.700-1.30 mg/dL Glomerular Filtration Rate Calc 76 >90 mL/min BUN/Creatinine Ratio 17.6 10.0-20.0 Serum Glucose 70 L 74-106 mg/dL Lactic Acid Level 1.0 0.4-2.0 mmol/L Calcium Level 10.2 8.7-10.4 mg/dL Total Bilirubin 0.6 0.2-1.0 mg/dL Aspartate Amino Transferase (AST) < 8 L 13-40 U/L Alanine Aminotransferase (ALT) 16 7-40 U/L Alkaline Phosphatase 145 H 46-116 U/L C-Reactive Protein High Sensitivity 4.63 H <1.0 mg/dL B-Type Natriuretic Peptide 108.10 0-100 pg/mL Total Protein 7.3 5.7-8.2 g/dL Albumin 4.3 3.2-4.8 g/dL PATIENT: WIL BLAND AACCT: [id number] UNIT: [id number] : 1960 LOC: ER ROOM / BED: / AGE / SEX: 63 / M ADM STATUS: REG ER SERVICE 28 ORDERING PHYSICIAN: MOO DAY DO PROCEDURE(s): RUECT - RT UPPER EXTREMITY WITH CONT REASON: PAIN SWELLING RIGHT HAND ORDER NUMBER(s): [id number], ACCESSION NUMBER(s): [id number] Procedure: CT RT UPPER EXTREMITY WITH CONT 05/15/2024 09:46 PM Indication: PAIN SWELLING RIGHT HAND Comparison Study: None. Technique: Axial images were obtained and reformatted in coronal and sagittal planes of the right hand. All CT scans at this medical facility are performed using dose modulation techniques as appropriate to a performed exam including the following: Automated exposure control was utilized; adjustment of the MA and/or KV according to patient size; and use of iterative reconstruction technique. CT Dose: CTDI volume is 7.75 mGy. Dose-length product is 238.08 mGy*cm FINDINGS: Bones: There appears to be a subluxation of the lunate. There is arthritic changes at the carpometacarpal joint of the thumb and index finger can not exclude small fracture. Minimally displaced fracture of the capitate. Soft tissues: Unremarkable. IMPRESSION: 1. Subluxation of the lunat on the right e. 2. Nondisplaced fracture through the capitate on the right. 3. Arthritic changes of the carpometacarpal joint of the thumb and index finger. Osteoarthritic changes versus small avulsion fractures can not be distinguished. Assessment/Plan Assessment/Plan Cellulitis of right hand Right arm pain Plan 1. Admit to med surge unit 2. Breathing treatment 3. Pain control management 4. IV antibiotic management 5. Management of fluids and electrolytes 6. Consultation for hospitalist 7. Diagnostic test right hand CT 8. DVT prophylaxis on aspirin 9. Repeat labs CBC, CMP in a.m. 10. Home medication reviewed and reconciled 11. Continue with current medical management 12. Treatment plan discussed with patient and RN. Patient verbalized understa nding. Plan discussed with: Patient, Other (RN) My Orders Orders - CHIP BONDS DNP Procedure Category Date Status Time Consistent DIET 05/16/24 Transmitted Carb(Ccho)Diabetes Breakfast Aspirin Tablet PHA 05/16/24 In Process 10:00 Atorvastatin (Lipitor) PHA 05/15/24 In Process 22:00 Albuterol Medneb PHA 05/15/24 In Process (Ventolin Medneb) 21:30 Famotidine Injection PHA 05/16/24 In Process (Pepcid Injection) 10:00 Metoprolol Tartrate PHA 05/15/24 In Process Tablet (Lopressor Ta 22:00 Hydralazine Injection PHA 05/15/24 In Process (Apresoline Inject 21:30 Glucose Blood PHA 05/15/24 In Process (Accu-Chek Comfort 22:00 Insulin R (Human) PHA 05/15/24 In Process (Insulin R) 22:00 Dextrose 50% Syringe PHA 05/15/24 In Process 21:30 Allergies FRAN 05/15/24 In Process 21:18 Code Status CODE 05/15/24 Transmitted 21:18 Sodium Chloride Lock PHA 05/15/24 In Process (Saline Lock Ns) 22:00 Oxygen Per Hour RT 05/15/24 Transmitted 21:18 Hydrocodone-Acet PHA 05/15/24 In Process 5/325mg Tab ([place] 21:30 Ondansetron Hcl PHA 05/15/24 In Process (Zofran) 21:30 Docusate Sodium PHA 05/15/24 In Process Capsule (Colace 21:30 Multiple Vitamin PHA 05/16/24 In Process Tablet (Mvi Tab) 10:00 Complete Blood Count LAB 05/16/24 Verified 04:00 Comprehensive LAB 05/16/24 Verified Metabolic Panel 04:00 Condition: Serious FRAN 05/15/24 In Process 21:18 Acetaminophen Tablet PHA 05/15/24 In Process (Tylenol Tablet) 21:30 Bedrest With Bathroom FRAN 05/15/24 In Process Privileg 21:18 Morphine Sulfate PHA 05/15/24 In Process Injection 21:30 Sequential FRAN 05/15/24 In Process Compression Device Problem List: (1) Cellulitis of right hand (2) Right arm pain Date of Service: May 15, 2024 Billing Provider: CHIP BONDS DNP Common Visit Codes: [id number] INP/OBS CARE (MOD) CHIP BONDS DNP May 15, 2024 23:11
[2024-05-15] MEDS ORDERED: NITROGLYCERIN 0.4 MG SL TAB SL PRN (23:15)
[2024-05-15] MEDS ORDERED: VANCOMYCIN 1GM/200ML PREMIX 0 ML IV ONE (23:48)
[2024-05-16] VITALS (8 sets, daily range): BP systolic 91–140; BP diastolic 52–84; PULSE 53–65; RESP 18–20; TEMP 97.8–98.4; O2SAT 94–97
[2024-05-16 04:21] LABS: Basophils # (auto) 0 10 ^3/uL (0-0.2); Basophils % (auto) 0.5 % (0.0-2.0); Eosinophils # (auto) 0.5 10 ^3/uL (0-0.8); Hemoglobin 11.5 g/dL (13.5-17.5); Lymphocytes # (auto) 1.6 10 ^3/uL (0.4-5.4); Lymphocytes % (auto) 19.3 % (10.0-50.0); Mean Corpuscular Hgb Conc. 33.8 g/dL (32.0-36.0); Mean Corpuscular Volume 94.7 fL (80.0-100.0); Monocytes # (auto) 0.8 10 ^3/uL (0-1.3); Monocytes % (auto) 9.7 % (0.0-12.0); Neutrophils # (auto) 5.2 10 ^3/uL (1.6-8.6); Neutrophils % (auto) 64.5 % (37.0-80.0); Platelet Count (auto) 257 10^3/uL (140-450); Red Blood Cells 3.59 10^6/uL (4.5-5.90); Red Cell Distribution Width 13.7 % (11.8-14.3); White Blood Cell 8.1 10^3/uL (4.4-10.8)
[2024-05-16 04:38] LABS: Alanine Aminotransferase 12 U/L (7-40); Albumin 4.1 g/dL (3.2-4.8); Alkaline Phosphatase 129 U/L (46-116); Anion Gap 10 (5-15); Aspartate Aminotransferase < 8 U/L (13-40); BUN/Creatinine Ratio 17.2 (10.0-20.0); Bilirubin, Total 0.4 mg/dL (0.2-1.0); Blood Urea Nitrogen 20 mg/dL (9-23); Carbon Dioxide 23 mmol/L (20-31); Chloride 108 mmol/L (98-107); Glucose 136 mg/dL (74-106); Potassium 3.9 mmol/L (3.5-5.1); Sodium 141 mmol/L (136-145); Total Protein 7.2 g/dL (5.7-8.2)
[2024-05-16] MEDS: HYDROcodone-ACET 5/325MG TAB PO PRN (04:49)
[2024-05-16] MEDS: VANCOMYCIN 1GM/200ML PREMIX 200 ML IV SCH (08:42)
[2024-05-16] MEDS: MULTIPLE VITAMIN TAB PO SCH (09:29)
[2024-05-16] MEDS: ASPirin 81 mg TAB PO SCH (09:31)
[2024-05-16] MEDS: FAMOTIDINE (10MG/ML) 2ML VL IV SCH (09:47)
--- NOTE | 2024-05-16 11:01 | DVHPN2 ---
Subjective The patient is seen and examined at bedside. Complaint of hand pain. Reviewed: Care Plan, H&P, Labs, Medications, Previous Orders Changes from previous H/P or p: No Changes Eyes: No Pain, No Vision change, No Conjunctivae inflammation, No Eyelid inflammation, No Other, No Redness ENT: No Ear pain, No Ear discharge, No Nose pain, No Nose discharge, No Nose congestion, No Mouth pain, No Mouth swelling, No Throat pain, No Throat swelling, No Other Cardiovascular: No Chest Pain, No Palpitations, No Orthopnea, No Paroxysmal Noc. Dyspnea, No Edema, No Lt Headedness, No Other Respiratory: No Cough, No Dry, No Shortness of breath, No SOB with excertion, No Wheezing, No Hemoptysis, No Pleuritic Pain, No Sputum, No Other Gastrointestinal: No Nausea, No Vomiting, No Abdominal Pain, No Diarrhea, No Constipation, No Melena, No Hematochezia, No Other Genitourinary: No Dysuria, No Frequency, No Incontinence, No Hematuria, No Retention, No Other Musculoskeletal: other (Right hand swelling); No neck pain, No shoulder pain; a rm pain; No back pain, No hand pain, No leg pain, No foot pain Skin: No Rash, No Lesions, No Jaundice, No Bruising, No Other Objective Vitals Vital Signs Date Time Temp Pulse Resp B/P (MAP) Pulse Ox O2 Delivery O2 Flow Rate FiO2 05/16/24 10:40 60 123/70 05/16/24 10:00 95 Room Air 05/16/24 10:00 0 21 05/16/24 03:56 18 05/16/24 03:56 97.8 97.8 General Appearance: Alert, Oriented X3, Cooperative, No acute distress HEENT: Atraumatic, PERRLA, EOMI, Mucous membr. moist/pink Neck: Supple Lungs: Clear to auscultation, Normal air movement Cardiovascular: Regular rate, Normal S1, Normal S2, No murmurs, Gallops, Rubs Abdomen: Normal bowel sounds, Soft Neuro: Cranial nerves 3-12 NL Psych/Mental Status: Mental status NL Medications Current Medications Medications Dose Ordered Sig/Erica Route Start Time Stop Time Status Last Admin Dose Admin Vancomycin HCl 0 ml @ 0 mls/hr UD IV 05/15/24 18:15 Aspirin 81 mg DAILY PO 05/16/24 10:00 05/16/24 09:31 81 MG Atorvastatin Calcium 20 mg HS PO 05/15/24 22:00 05/15/24 22:19 20 MG Albuterol 2.5 mg Q4HPRN PRN NEB 05/15/24 21:30 Famotidine 20 mg DAILY IV 05/16/24 10:00 05/16/24 09:47 20 MG Metoprolol Tartrate 50 mg BID PO 05/15/24 22:00 05/16/24 09:30 50 MG Hydralazine HCl 10 mg Q6HP PRN IV 05/15/24 21:30 Diagnostic Test (Pha) 1 strip ACHS 05/15/24 22:00 05/16/24 06:02 1 STRIP Insulin Human Regular ACHS SC 05/15/24 22:00 Dextrose 50 ml UD PRN IV 05/15/24 21:30 Sodium Chloride 10 ml Q8HR IV 05/15/24 22:00 05/16/24 06:03 10 ML Acetaminophen/ Hydrocodone Bitart 1 tab Q4HP PRN PO 05/15/24 21:30 05/16/24 09:27 1 TAB Ondansetron HCl 4 mg Q4HP PRN IV 05/15/24 21:30 Docusate Sodium 100 mg BIDPRN PRN PO 05/15/24 21:30 Multivitamins 1 tab DAILY PO 05/16/24 10:00 05/16/24 09:29 1 TAB Acetaminophen 650 mg Q6HP PRN PO 05/15/24 21:30 Morphine Sulfate 2 mg Q4HPRN PRN IV 05/15/24 21:30 Nitroglycerin 0.4 mg Q5MINP PRN SL 05/15/24 23:15 Morphine Sulfate 2 mg Q30M PRN IV 05/15/24 23:15 Vancomycin HCl 200 ml @ 200 mls/hr Q10H IV 05/16/24 08:00 05/16/24 08:42 200 MLS/HR Laboratory Results Laboratory Tests 05/16/24 03:45 Chemistry Test 05/15/24 16:35 05/16/24 03:45 Albumin 4.3 g/dL (3.2-4.8) 4.1 g/dL (3.2-4.8) Calcium Level 10.2 mg/dL (8.7-10.4) 10.0 mg/dL (8.7-10.4) Total Protein 7.3 g/dL (5.7-8.2) 7.2 g/dL (5.7-8.2) Cardiac Markers Test 05/15/24 16:35 B-Type Natriuretic Peptide 108.10 pg/mL (0-100) LFT Test 05/15/24 16:35 05/16/24 03:45 Alanine Aminotransferase (ALT) 16 U/L (7-40) 12 U/L (7-40) Alkaline Phosphatase 145 U/L (46-116) H 129 U/L (46-116) H Aspartate Amino Transferase (AST) < 8 U/L (13-40) L < 8 U/L (13-40) L Total Bilirubin 0.6 mg/dL (0.2-1.0) 0.4 mg/dL (0.2-1.0) Labs and/or images reviewed: Labs reviewed by me Assessment/Plan Assessment/Plan Right hand cellulitis Nondisplaced fracture through the capitate on the right Osteoarthritis Continuing current management. I will check uric acid to rule out gout. Continuing with IV vancomycin. I will add Zosyn 3.375 g IV Q 8 hours. I will put in a orthopedic hand surgeon. Continuing with pain medication. Plan discussed with: Patient Date of Service: May 16, 2024 Billing Provider: SARAHY DUQUE MD Common Visit Codes: [id number] INP/OBS CARE(HIGH) SARAHY DUQUE MD May 16, 2024 11:01
[2024-05-16] MEDS: PIPERACILLIN-TAZOB 3.375GM 100 ML IV SCH (14:08)
[2024-05-16] MEDS ORDERED: FERR325T24 PO (16:42)
[2024-05-16] MEDS ORDERED: TOPI50TA53 PO (16:46)
[2024-05-17] VITALS (9 sets, daily range): BP systolic 118–154; BP diastolic 74–94; PULSE 52–81; RESP 17–20; TEMP 97.4–98.9; O2SAT 94–98
[2024-05-17 04:09] LABS: Basophils # (auto) 0.1 10 ^3/uL (0-0.2); Basophils % (auto) 0.7 % (0.0-2.0); Eosinophils # (auto) 0.7 10 ^3/uL (0-0.8); Eosinophils % (auto) 9.5 % (0.0-7.0); Hematocrit 33.8 % (41.0-53.0); Hemoglobin 11.4 g/dL (13.5-17.5); Lymphocytes # (auto) 1.7 10 ^3/uL (0.4-5.4); Lymphocytes % (auto) 22.8 % (10.0-50.0); Mean Corpuscular Hemoglobin 31.7 pg (28.0-32.0); Mean Corpuscular Hgb Conc. 33.7 g/dL (32.0-36.0); Mean Corpuscular Volume 94.2 fL (80.0-100.0); Monocytes # (auto) 0.7 10 ^3/uL (0-1.3); Monocytes % (auto) 9.8 % (0.0-12.0); Neutrophils # (auto) 4.3 10 ^3/uL (1.6-8.6); Neutrophils % (auto) 57.2 % (37.0-80.0); Nucleated Red Blood Cells % 0.1 %; Platelet Count (auto) 241 10^3/uL (140-450); Red Blood Cells 3.59 10^6/uL (4.5-5.90); Red Cell Distribution Width 13.5 % (11.8-14.3); White Blood Cell 7.5 10^3/uL (4.4-10.8)
[2024-05-17] MEDS: hydrALAZINE HCL 20 MG/ML VL IV PRN (13:16)
--- NOTE | 2024-05-17 13:30 | DVHPN2 ---
Subjective The patient is seen and examined at bedside. Still complaint of pain. Reviewed: Care Plan, H&P, Labs, Medications, Previous Orders, Radiology Changes from previous H/P or p: No Changes Eyes: No Pain, No Vision change, No Conjunctivae inflammation, No Eyelid inflammation, No Other, No Redness ENT: No Ear pain, No Ear discharge, No Nose pain, No Nose discharge, No Nose congestion, No Mouth pain, No Mouth swelling, No Throat pain, No Throat swelling, No Other Cardiovascular: No Chest Pain, No Palpitations, No Orthopnea, No Paroxysmal Noc. Dyspnea, No Edema, No Lt Headedness, No Other Respiratory: No Cough, No Dry, No Shortness of breath, No SOB with excertion, No Wheezing, No Hemoptysis, No Pleuritic Pain, No Sputum, No Other Gastrointestinal: No Nausea, No Vomiting, No Abdominal Pain, No Diarrhea, No Constipation, No Melena, No Hematochezia, No Other Genitourinary: No Dysuria, No Frequency, No Incontinence, No Hematuria, No Retention, No Other Musculoskeletal: other (Right hand swelling); No neck pain, No shoulder pain; a rm pain; No back pain, No hand pain, No leg pain, No foot pain Skin: No Rash, No Lesions, No Jaundice, No Bruising, No Other Objective Vitals Vital Signs Date Time Temp Pulse Resp B/P (MAP) Pulse Ox O2 Delivery O2 Flow Rate FiO2 05/17/24 13:16 154/90 05/17/24 09:59 98 Room Air 0.0 05/17/24 09:59 21 05/17/24 09:36 60 05/17/24 08:41 97.4 18 97.4 Intake/Output Intake and Output 05/17/24 07:00 Intake Total 1580 ml Balance 1580 ml Intake Oral 1380 ml IV Total 200 ml # Voids 6 General Appearance: Alert, Oriented X3, Cooperative, No acute distress HEENT: Atraumatic, PERRLA, EOMI, Mucous membr. moist/pink Neck: Supple Lungs: Clear to auscultation, Normal air movement Cardiovascular: Regular rate, Normal S1, Normal S2, No murmurs, Gallops, Rubs Abdomen: Normal bowel sounds, Soft, No tenderness Neuro: Cranial nerves 3-12 NL Psych/Mental Status: Mental status NL Medications Current Medications Medications Dose Ordered Sig/Erica Route Start Time Stop Time Status Last Admin Dose Admin Vancomycin HCl 0 ml @ 0 mls/hr UD IV 05/15/24 18:15 Aspirin 81 mg DAILY PO 05/16/24 10:00 05/17/24 09:36 81 MG Atorvastatin Calcium 20 mg HS PO 05/15/24 22:00 05/16/24 21:39 20 MG Albuterol 2.5 mg Q4HPRN PRN NEB 05/15/24 21:30 Famotidine 20 mg DAILY IV 05/16/24 10:00 05/17/24 09:36 20 MG Metoprolol Tartrate 50 mg BID PO 05/15/24 22:00 05/17/24 09:36 50 MG Hydralazine HCl 10 mg Q6HP PRN IV 05/15/24 21:30 05/17/24 13:16 10 MG Diagnostic Test (Pha) 1 strip ACHS 05/15/24 22:00 05/17/24 12:19 1 STRIP Insulin Human Regular ACHS SC 05/15/24 22:00 05/17/24 12:19 2 UNITS Dextrose 50 ml UD PRN IV 05/15/24 21:30 Sodium Chloride 10 ml Q8HR IV 05/15/24 22:00 05/17/24 05:19 10 ML Acetaminophen/ Hydrocodone Bitart 1 tab Q4HP PRN PO 05/15/24 21:30 05/17/24 09:47 1 TAB Ondansetron HCl 4 mg Q4HP PRN IV 05/15/24 21:30 Docusate Sodium 100 mg BIDPRN PRN PO 05/15/24 21:30 Multivitamins 1 tab DAILY PO 05/16/24 10:00 05/17/24 09:35 1 TAB Acetaminophen 650 mg Q6HP PRN PO 05/15/24 21:30 Morphine Sulfate 2 mg Q4HPRN PRN IV 05/15/24 21:30 Nitroglycerin 0.4 mg Q5MINP PRN SL 05/15/24 23:15 Morphine Sulfate 2 mg Q30M PRN IV 05/15/24 23:15 Piperacillin Sod/ Tazobactam Sod 100 ml @ 25 mls/hr Q8HR IV 05/16/24 14:00 05/17/24 05:58 25 MLS/HR Vancomycin HCl 200 ml @ 200 mls/hr Q12H IV 05/17/24 17:00 Laboratory Results Laboratory Tests 05/16/24 03:45 05/17/24 03:30 Labs and/or images reviewed: Labs reviewed by me Assessment/Plan Assessment/Plan Right hand cellulitis Nondisplaced fracture through the capitate on the right Osteoarthritis Continuing current management. I will check uric acid to rule out gout. Continuing with IV vancomycin, pharmacy to dose. Continuing Zosyn 3.375 g IV Q 8 hours. Waiting for orthopedic surgeon to see the patient. Continuing with pain medication. Plan discussed with: Patient Date of Service: May 17, 2024 Billing Provider: SARAHY DUQUE MD Common Visit Codes: [id number] INP/OBS CARE(HIGH) SARAHY DUQUE MD May 17, 2024 13:30
[2024-05-17] MEDS: VANCOMYCIN 1GM/200ML PREMIX 200 ML IV SCH (17:15)
[2024-05-18] VITALS (9 sets, daily range): BP systolic 84–144; BP diastolic 46–96; PULSE 51–83; RESP 1–20; TEMP 97.8–98.7; O2SAT 94–99
[2024-05-18] MEDS: ACETAMINOPHEN 325 MG TAB PO PRN (02:33)
[2024-05-18 05:39] LABS: Basophils # (auto) 0.1 10 ^3/uL (0-0.2); Basophils % (auto) 0.8 % (0.0-2.0); Eosinophils # (auto) 0.7 10 ^3/uL (0-0.8); Eosinophils % (auto) 8.8 % (0.0-7.0); Hemoglobin 12.2 g/dL (13.5-17.5); Lymphocytes # (auto) 2.1 10 ^3/uL (0.4-5.4); Lymphocytes % (auto) 26.4 % (10.0-50.0); Mean Corpuscular Hemoglobin 32.1 pg (28.0-32.0); Mean Corpuscular Hgb Conc. 33.8 g/dL (32.0-36.0); Mean Corpuscular Volume 94.9 fL (80.0-100.0); Monocytes # (auto) 0.9 10 ^3/uL (0-1.3); Monocytes % (auto) 11.2 % (0.0-12.0); Neutrophils # (auto) 4.2 10 ^3/uL (1.6-8.6); Neutrophils % (auto) 52.8 % (37.0-80.0); Nucleated Red Blood Cells % 0.1 %; Platelet Count (auto) 275 10^3/uL (140-450); Red Cell Distribution Width 13.4 % (11.8-14.3); White Blood Cell 7.9 10^3/uL (4.4-10.8)
[2024-05-18 05:50] LABS: Alanine Aminotransferase 22 U/L (7-40); Albumin 4.3 g/dL (3.2-4.8); Alkaline Phosphatase 122 U/L (46-116); Anion Gap 6 (5-15); Aspartate Aminotransferase 13 U/L (13-40); BUN/Creatinine Ratio 15.2 (10.0-20.0); Blood Urea Nitrogen 16 mg/dL (9-23); Calcium 10.2 mg/dL (8.7-10.4); Carbon Dioxide 24 mmol/L (20-31); Chloride 111 mmol/L (98-107); Glucose 101 mg/dL (74-106); Potassium 4.5 mmol/L (3.5-5.1); Sodium 141 mmol/L (136-145); Uric Acid 5.4 mg/dL (3.7-9.2)
[2024-05-18 05:51] LABS: Bilirubin, Total 0.5 mg/dL (0.2-1.0); Total Protein 7.3 g/dL (5.7-8.2)
--- NOTE | 2024-05-18 10:00 | DVHPN2 ---
Subjective The patient is seen and examined at bedside. Still complaint of pain. Reviewed: Care Plan, H&P, Labs, Medications, Previous Orders, Radiology Changes from previous H/P or p: No Changes Eyes: No Pain, No Vision change, No Conjunctivae inflammation, No Eyelid inflammation, No Other, No Redness ENT: No Ear pain, No Ear discharge, No Nose pain, No Nose discharge, No Nose congestion, No Mouth pain, No Mouth swelling, No Throat pain, No Throat swelling, No Other Cardiovascular: No Chest Pain, No Palpitations, No Orthopnea, No Paroxysmal Noc. Dyspnea, No Edema, No Lt Headedness, No Other Respiratory: No Cough, No Dry, No Shortness of breath, No SOB with excertion, No Wheezing, No Hemoptysis, No Pleuritic Pain, No Sputum, No Other Gastrointestinal: No Nausea, No Vomiting, No Abdominal Pain, No Diarrhea, No Constipation, No Melena, No Hematochezia, No Other Genitourinary: No Dysuria, No Frequency, No Incontinence, No Hematuria, No Retention, No Other Musculoskeletal: other (Right hand swelling); No neck pain, No shoulder pain; a rm pain; No back pain, No hand pain, No leg pain, No foot pain Skin: No Rash, No Lesions, No Jaundice, No Bruising, No Other Objective Vitals Vital Signs Date Time Temp Pulse Resp B/P (MAP) Pulse Ox O2 Delivery O2 Flow Rate FiO2 05/18/24 09:38 61 138/90 05/18/24 08:23 97.8 18 96 97.8 05/18/24 08:00 Room Air* 0 21 Intake/Output Intake and Output 05/18/24 07:00 Intake Total 2460 ml Balance 2460 ml Intake Oral 1760 ml IV Total 700 ml # Voids 8 General Appearance: Alert, Oriented X3, Cooperative, No acute distress HEENT: Atraumatic, PERRLA, EOMI, Mucous membr. moist/pink Neck: Supple Lungs: Clear to auscultation, Normal air movement Cardiovascular: Regular rate, Normal S1, Normal S2, No murmurs, Gallops, Rubs Abdomen: Normal bowel sounds, Soft, No tenderness Neuro: Cranial nerves 3-12 NL Psych/Mental Status: Mental status NL Medications Current Medications Medications Dose Ordered Sig/Erica Route Start Time Stop Time Status Last Admin Dose Admin Vancomycin HCl 0 ml @ 0 mls/hr UD IV 05/15/24 18:15 Aspirin 81 mg DAILY PO 05/16/24 10:00 05/18/24 09:38 81 MG Atorvastatin Calcium 20 mg HS PO 05/15/24 22:00 05/17/24 21:25 20 MG Famotidine 20 mg DAILY IV 05/16/24 10:00 05/18/24 09:38 20 MG Metoprolol Tartrate 50 mg BID PO 05/15/24 22:00 05/18/24 09:38 50 MG Hydralazine HCl 10 mg Q6HP PRN IV 05/15/24 21:30 05/17/24 13:16 10 MG Diagnostic Test (Pha) 1 strip ACHS 05/15/24 22:00 05/18/24 06:09 1 STRIP Insulin Human Regular ACHS SC 05/15/24 22:00 05/17/24 12:19 2 UNITS Dextrose 50 ml UD PRN IV 05/15/24 21:30 Sodium Chloride 10 ml Q8HR IV 05/15/24 22:00 05/18/24 05:44 10 ML Acetaminophen/ Hydrocodone Bitart 1 tab Q4HP PRN PO 05/15/24 21:30 05/17/24 21:26 1 TAB Ondansetron HCl 4 mg Q4HP PRN IV 05/15/24 21:30 Docusate Sodium 100 mg BIDPRN PRN PO 05/15/24 21:30 Multivitamins 1 tab DAILY PO 05/16/24 10:00 05/18/24 09:38 1 TAB Acetaminophen 650 mg Q6HP PRN PO 05/15/24 21:30 05/18/24 02:33 650 MG Morphine Sulfate 2 mg Q4HPRN PRN IV 05/15/24 21:30 Nitroglycerin 0.4 mg Q5MINP PRN SL 05/15/24 23:15 Morphine Sulfate 2 mg Q30M PRN IV 05/15/24 23:15 Piperacillin Sod/ Tazobactam Sod 100 ml @ 25 mls/hr Q8HR IV 05/16/24 14:00 05/18/24 05:51 25 MLS/HR Vancomycin HCl 200 ml @ 200 mls/hr Q12H IV 05/17/24 17:00 05/18/24 04:18 200 MLS/HR Laboratory Results Laboratory Tests 05/18/24 05:12 Chemistry Test 05/18/24 05:12 Albumin 4.3 g/dL (3.2-4.8) Calcium Level 10.2 mg/dL (8.7-10.4) Total Protein 7.3 g/dL (5.7-8.2) LFT Test 05/18/24 05:12 Alanine Aminotransferase (ALT) 22 U/L (7-40) Alkaline Phosphatase 122 U/L (46-116) H Aspartate Amino Transferase (AST) 13 U/L (13-40) Total Bilirubin 0.5 mg/dL (0.2-1.0) Labs and/or images reviewed: Labs reviewed by me Assessment/Plan Assessment/Plan Right hand cellulitis Nondisplaced fracture through the capitate on the right Osteoarthritis Continuing current management. Uric acid is normal. Continuing with IV vancomycin, pharmacy to dose. Continuing Zosyn 3.375 g IV Q 8 hours. Waiting for orthopedic surgeon to see the patient. Continuing with pain medication. Plan discussed with: Patient My Orders Orders - SARAHY DUQUE MD Procedure Category Date Status Time * Orthopedic Consult CONS 05/18/24 Verified 06:25 Date of Service: May 18, 2024 Billing Provider: SARAHY DUQUE MD Common Visit Codes: [id number] INP/OBS CARE(HIGH) SARAHY DUQUE MD May 18, 2024 10:00
--- NOTE | 2024-05-18 15:24 | DVHINCON2 ---
Date of service: May 18, 2024 Reason for Consultation Right hand cellulitis History of Present Illness Mr. Long is a 63-year-old male who has been experiencing right hand pain and swelling for the last two weeks that began without a known incident or injury but notes that he lifted up a heavy box of cat litter and later that night developed pain and swelling to his right hand near his 2nd knuckle which progressively worsened. Patient notes that since being admitted to the hospital and being started on antibiotics the swelling has improved although he still r emains with a lot of swelling near the 2nd MCP joint and still limited range of motion. Patient is otherwise feeling well denying any other complaints or concerns during my evaluation. Past Medical History Hypertension, diabetes, hyperlipidemia, arthritis Past Surgical History Denies Family History: No Family History of: Alcoholism Family History Noncontributory Social History Patient denies smoking, EtOH, or illicit substance abuse Allergies: Coded Allergies: Sulfasalazine (Unverified Allergy, Intermediate, hematuria, 11/04/21) Adalimumab (Verified Allergy, Unknown, 01/13/15) Sulfa Antibiotics (Verified Allergy, Unknown, 02/14/16) Home Meds Active Scripts Cephalexin Monohydrate (Cephalexin) 500 Mg Cap, 1 CAP PO QID, #28 CAP Prov:MICHAEL REICH 12/06/23 Reported Medications Topiramate (Topiramate) 50 Mg Tab, 3 TAB PO HS, #60 TAB 1 Refill 05/16/24 Ferrous Sulfate (Ferrous Sulfate) 325 Mg Tab, 325 MG PO EOD for 30 Days, MG 05/16/24 Artificial Tear Solution (ARTIFICIAL TEARS) Tears Mackenzie, 1 DROP EACHEYE QIDPRN for DRY EYES, ML 11/04/21 Flunisolide (Nasal) (Flunisolide) 0.025 % Spr, 0.025 % NA, SPRAY 11/04/21 Multiple Vitamin (Multivitamins) Tab, 1 OR, TAB 11/04/21 Barnet-3 Fatty Acids (Fish Oil Barnet-3 1000 mg) 1 Cap Cap, 1 CAP PO, CAP 11/04/21 Oxycodone Hcl (OxyCONTIN ER Tablet) 10 Mg Tb, 10 MG PO QID, TAB 11/04/21 Lisinopril (Lisinopril) 20 Mg Tab, 20 MG PO DAILY, TAB 11/04/21 Metformin Hydrochloride (Metformin Hcl) 500 Mg Tab, 500 MG PO BID, TAB 11/04/21 Aspirin (Aspir-81) 81 Mg Tab, 81 MG PO DAILY@BREAKFAST, TAB 11/04/21 Certolizumab Pegol (Cimzia) 200 Mg/Ml Kit, 1 ML SC bimonthly, KIT 11/04/21 Gabapentin (Gabapentin) 300 Mg Cap, 300 MG PO TID, #3 CAP 11/04/21 Benzoyl Peroxide-Hydrocortison (Benzolyl Peroxide Forte- 7.5-1 %) 1 Lot Lot, 1 LOT EX, BOTTLE 11/04/21 Chlorhexidine Gluconate (GNP ANTISEPTIC SKIN CLEAN) 4 % Mackenzie, 4 % EX, ML 11/04/21 Albuterol Sulfate (VENTOLIN MDI) 90 Mcg Ih, 90 MCG IN PRN, INH 11/04/21 Fluticasone Propionate (FLOVENT HFA 110Mcg INH) 110 Mcg Ih, 50 MCG IN DAILY, INH 11/04/21 Lidocaine (LIDODERM 5% TOPICAL PATCH) 1 Patch Ph, 1 PATCH TOP DAILY, PATCH 11/04/21 Insulin Glargine (Lantus) 100 Unit/Ml Inj, 25 UNIT SC DAILY, INJ 11/04/21 Doxycycline Monohydrate (Doxycycline Monohydrate) 100 Mg Cap, 50 MG PO DAILY, CAP 11/04/21 Methotrexate (Methotrexate) 2.5 Mg Tab, 2.5 MG PO QWEEKLY, #8 TAB 11/04/21 Metoprolol Tartrate (Metoprolol Tartrate) 100 Mg Tab, 100 MG PO BID, TAB 11/04/21 Atorvastatin Calcium (Lipitor) 20 Mg Tab, 20 MG PO HS, TAB 11/04/21 Glipizide (Glipizide Xl) 5 Mg Tab, 5 MG PO BID, TAB 11/04/21 Duloxetine Hcl (Cymbalta) 60 Mg Cap, 60 MG PO DAILY, CAP 11/04/21 Albuterol Sulfate (Albuterol Sulfate) 2 Mg Tab, 90 MCG IN Q4HP PRN for FOR COUGH, MG 01/14/15 Methotrexate (Methotrexate) 2.5 Mg Tab, 6 TAB PO QWEEKLY, #24 TAB 1 Refill 01/14/15 Cholecalciferol (Vitamin D3) 1,000 Unit Cap, 1000 UNIT PO DAILY, CAP 01/14/15 Lactobacillus (ACIDOPHILUS) Cap, 2 MG PO DAILY, CAP 01/14/15 Vitamin B12 (Vitamin B-12) 1,000 Mcg/1 Ml Ij, 6 MCG PO DAILY 01/14/15 Omeprazole (PRILOSEC) 20 Mg Cap, 20 MG OR BID, CAP 01/14/15 Metoprolol Tartrate (Metoprolol Tartrate) 100 Mg Tab, 150 MG PO HS for 30 Days, MG 01/14/15 Flunisolide (Nasal) (Flunisolide) 0.025 % Spr, 1 SPRAY NA BID, #25 ML 3 Refills 01/14/15 Divalproex Sodium (Divalproex Sodium) 250 Mg Tab, 250 MG PO BID, TAB 01/14/15 Acetaminophen (Acetaminophen) 500 Mg Cap, 500 MG PO TIDP PRN for MILD PAIN for 30 Days, MG 01/14/15 Discontinued Reported Medications Menthol-Methyl Salicylate (Holly (TIGER BALM LINIMENT) Liniment Liq, 1 EX, LIQ 11/04/21 Triamcinolone Acetonide (Triamcinolone Acetonide) 0.1 % Oin, 0.1 % EX, OIN 11/04/21 Lactic Acid (Ammonium Lactate) 12 % Lot, 12 % EX, BOTTLE 11/04/21 Hydrophilic Ointment (Hydrophilic) Oin, 1 EX, OIN 11/04/21 Folic Qvoo-Bfnykfvnsu-Vmtcqnlm (Folbic) Tab, 1 OR, TAB 11/04/21 Omeprazole (Gnp Omeprazole) 20 Mg Tab, 20 MG PO BID, TAB 11/04/21 Hydrocortone (Hydrocortisone 2.5%) 1 Applic Ap, 1 APPLIC LA, APPLIC 11/04/21 Tramadol Hcl (Tramadol Hcl) 50 Mg Tab, 50 MG PO DAILY, TAB 11/04/21 Tramadol Hcl (Tramadol Hcl) 50 Mg Tab, 50 MG PO Q8HP PRN for MILD PAIN, MG 01/14/15 Folic Acid (Folic Acid) 1 Mg Tab, 1 MG PO DAILY for 30 Days, MG 01/14/15 Current Medications Current Medications Medications (Trade) Dose Ordered Sig/Erica Route PRN Reason Start Time Stop Time Status Last Admin Vancomycin HCl 200 ml @ 200 mls/hr Q12H IV 05/17/24 17:00 05/18/24 04:18 Review of Systems 10 point review of systems negative except as per HPI Vital Signs Vital Signs Date Time Temp Pulse Resp B/P (MAP) Pulse Ox O2 Delivery O2 Flow Rate FiO2 05/18/24 11:48 97.8 64 16 135/95 (108) 98 97.8 05/18/24 10:00 Room Air* 0 21 Physical Exam General appearance: A&O x4 in no acute distress HEENT: Normal ENT inspection, pharynx normal, TMs normal Neck: Full range of motion, nontender, normal inspection Respiratory: Chest nontender, without accessory muscle use, no respiratory distress Cardiovascular: No edema, no JVD, normal peripheral pulses Gastrointestinal: Soft, nontender, no organomegaly. Musculoskeletal: Right hand range of motion grossly intact with the exception to grossly limited range of motion and swelling as well as erythema noted near the dorsal aspect of the 2nd MCP joint, normal capillary refill, neurovascularly intact. Skin: Dry, normal color, warm Lymphatic: No adenopathy Labs/Diagnostic Data Labs Test 05/18/24 05:53 05/18/24 05:12 05/17/24 03:30 05/16/24 03:45 Range/Units POC Glucose 109 H 70-106 mg/dl White Blood Count 7.9 4.4-10.8 10^3/uL Red Blood Count 3.80 L 4.5-5.90 10^6/uL Hemoglobin 12.2 L 13.5-17.5 g/dL Hematocrit 36.0 L 41.0-53.0 % Mean Corpuscular Volume 94.9 80.0-100.0 fL Mean Corpuscular Hemoglobin 32.1 H 28.0-32.0 pg Mean Corpuscular Hemoglobin Concent 33.8 32.0-36.0 g/dL Red Cell Distribution Width 13.4 11.8-14.3 % Platelet Count 275 140-450 10^3/uL Mean Platelet Volume 7.2 6.9-10.8 fL Neutrophils (%) (Auto) 52.8 37.0-80.0 % Lymphocytes (%) (Auto) 26.4 10.0-50.0 % Monocytes (%) (Auto) 11.2 0.0-12.0 % Eosinophils (%) (Auto) 8.8 H 0.0-7.0 % Basophils (%) (Auto) 0.8 0.0-2.0 % Neutrophils # (Auto) 4.2 1.6-8.6 10 ^3/uL Lymphocytes # (Auto) 2.1 0.4-5.4 10 ^3/uL Monocytes # (Auto) 0.9 0-1.3 10 ^3/uL Eosinophils # (Auto) 0.7 0-0.8 10 ^3/uL Basophils # (Auto) 0.1 0-0.2 10 ^3/uL Nucleated Red Blood Cells 0.1 % Sodium Level 141 136-145 mmol/L Potassium Level 4.5 3.5-5.1 mmol/L Chloride Level 111 H 98-107 mmol/L Carbon Dioxide Level 24 20-31 mmol/L Anion Gap 6 5-15 Blood Urea Nitrogen 16 9-23 mg/dL Creatinine 1.05 0.700-1.30 mg/dL Glomerular Filtration Rate Calc 79 >90 mL/min BUN/Creatinine Ratio 15.2 10.0-20.0 Serum Glucose 101 74-106 mg/dL Uric Acid 5.4 3.7-9.2 mg/dL Calcium Level 10.2 8.7-10.4 mg/dL Total Bilirubin 0.5 0.2-1.0 mg/dL Aspartate Amino Transferase (AST) 13 13-40 U/L Alanine Aminotransferase (ALT) 22 7-40 U/L Alkaline Phosphatase 122 H 46-116 U/L Total Protein 7.3 5.7-8.2 g/dL Albumin 4.3 3.2-4.8 g/dL Vancomycin Level Trough 14.8 H 5-10 ug/mL Test 05/15/24 16:35 Range/Units Erythrocyte Sedimentation Rate 43 H 0-20 mm/hr Lactic Acid Level 1.0 0.4-2.0 mmol/L C-Reactive Protein High Sensitivity 4.63 H <1.0 mg/dL B-Type Natriuretic Peptide 108.10 0-100 pg/mL Right upper extremity CT scan reviewed and demonstrated: 1. Subluxation of the lunat on the right e. 2. Nondisplaced fracture through the capitate on the right. 3. Arthritic changes of the carpometacarpal joint of the thumb and index finger. Assessment Right hand cellulitis Plan/Recommendation I had a lengthy discussion with the patient and after discussing his case and reviewing his imaging studies with Dr. Hurtado we have recommended an MRI of his right hand for further evaluation of his continued swelling and pain to his right hand to rule out any deep infection versus osteomyelitis. We will reconvene with the patient once the MRI has been completed to discuss the results and determine the course of action. Continue current management in the meantime. He understood and agreed. Thank you for allowing us to participate in the care of your patient. Plan discussed with: Patient OTTO FITZGERALD May 18, 2024 15:24
[2024-05-19] VITALS (7 sets, daily range): BP systolic 131–156; BP diastolic 63–74; PULSE 60–83; RESP 16–19; TEMP 97.7–98.7; O2SAT 16–98
[2024-05-19 10:29] LABS: Hepatitis B Surface Antigen Negative (Negative)
[2024-05-19 10:50] LABS: Hepatitis C Antibody Negative (Negative)
[2024-05-19 13:53] LABS: COVID19 ANTIGEN SOFIA FIA NEGATIVE (NEGATIVE)
== END 2024-05-19 16:45 | disposition short-term general hospital (02) | DRG 563 ==
LOC: ER 15:35 → OVERFLOW 23:09 → CENTRAL 05-16 03:52
PROVIDERS: ADMIT Nurse Practitioner Family; ATTEND Internal Medicine
DX: S62.134A Nondisplaced fracture of capitate [os magnum] bone, right wrist, initial encounter for closed fracture (principal); L03.113 Cellulitis of right upper limb; E78.5 Hyperlipidemia, unspecified; I10 Essential (primary) hypertension; M19.031 Primary osteoarthritis, right wrist; F17.210 Nicotine dependence, cigarettes, uncomplicated; E11.9 Type 2 diabetes mellitus without complications; Z88.1 Allergy status to other antibiotic agents; X50.0XXA Overexertion from strenuous movement or load, initial encounter; Y93.89 Activity, other specified; Y92.89 Other specified places as the place of occurrence of the external cause; Y99.8 Other external cause status
CPT/HCPCS: 36415; 73201; 80053; 80202; 82565; 82962; 83605; 83880; 84550; 85025; 85652; 86141; 86803; 87340; 87426; 96365; 96367; G0378; J1815; J2543; J3490

== ENCOUNTER 2024-07-09 15:25 | Inpatient (IN) | payer OTHER, MEDICARE, MEDICAID ==
[~2024-07-09] VITALS: Ht 190.5 cm; Wt 111.5 kg
[~2024-07-09 15:25] MED LIST changes: -CEPH500C PO; +FERR325T24 PO; -FOLI-119 PO; -FOLITAB22 OR; -HYD25TP PR; -HYDROIN8 EX; -LACT12LO26 EX; -MUPI2OIN2 EX; -OMEP20TA PO; +TOPI50TA53 PO; -TRAM50TA2 PO; -TRIA0.1O EX; -[UNRECOGNIZED DRUG - CODE] EX
--- NOTE | 2024-07-09 16:07 | ED.PDOC ---
HPI Comments 63 year old male presents to the ED with chief complaint of high blood pressure. Patient reports that he was seen by his PCP today and had a blood pressure of 207/129, being advised to come to the ED for further evaluation. Patient reports that he has an upcoming surgery for his right hand on Sunday. Patient denies any N/V/D, chest pain, SOB, dizziness, headache, or fever. Chief Complaint: High Blood Pressure Time Seen by MD: 16:02 Primary Care Provider: unknown Reviewed Notes: Nurses Notes, Medications, Allergies Allergies: Coded Allergies: Sulfasalazine (Unverified Allergy, Intermediate, hematuria, 11/04/21) Adalimumab (Verified Allergy, Unknown, 01/13/15) Sulfa Antibiotics (Verified Allergy, Unknown, 02/14/16) Home Meds Reported Medications Topiramate (Topiramate) 50 Mg Tab, 3 TAB PO HS, #60 TAB 1 Refill 05/16/24 Ferrous Sulfate (Ferrous Sulfate) 325 Mg Tab, 325 MG PO EOD for 30 Days, MG 05/16/24 Artificial Tear Solution (ARTIFICIAL TEARS) Tears Mackenzie, 1 DROP EACHEYE QIDPRN for DRY EYES, ML 11/04/21 Flunisolide (Nasal) (Flunisolide) 0.025 % Spr, 0.025 % NA, SPRAY 11/04/21 Multiple Vitamin (Multivitamins) Tab, 1 OR, TAB 11/04/21 Napavine-3 Fatty Acids (Fish Oil Napavine-3 1000 mg) 1 Cap Cap, 1 CAP PO, CAP 11/04/21 Oxycodone Hcl (OxyCONTIN ER Tablet) 10 Mg Tb, 10 MG PO QID, TAB 11/04/21 Lisinopril (Lisinopril) 20 Mg Tab, 20 MG PO DAILY, TAB 11/04/21 Metformin Hydrochloride (Metformin Hcl) 500 Mg Tab, 500 MG PO BID, TAB 11/04/21 Aspirin (Aspir-81) 81 Mg Tab, 81 MG PO DAILY@BREAKFAST, TAB 11/04/21 Certolizumab Pegol (Cimzia) 200 Mg/Ml Kit, 1 ML SC bimonthly, KIT 11/04/21 Gabapentin (Gabapentin) 300 Mg Cap, 300 MG PO TID, #3 CAP 11/04/21 Benzoyl Peroxide-Hydrocortison (Benzolyl Peroxide Forte- 7.5-1 %) 1 Lot Lot, 1 LOT EX, BOTTLE 11/04/21 Chlorhexidine Gluconate (GNP ANTISEPTIC SKIN CLEAN) 4 % Mackenzie, 4 % EX, ML 11/04/21 Albuterol Sulfate (VENTOLIN MDI) 90 Mcg Ih, 90 MCG IN PRN, INH 11/04/21 Fluticasone Propionate (FLOVENT HFA 110Mcg INH) 110 Mcg Ih, 50 MCG IN DAILY, INH 11/04/21 Lidocaine (LIDODERM 5% TOPICAL PATCH) 1 Patch Ph, 1 PATCH TOP DAILY, PATCH 11/04/21 Insulin Glargine (Lantus) 100 Unit/Ml Inj, 25 UNIT SC DAILY, INJ 11/04/21 Doxycycline Monohydrate (Doxycycline Monohydrate) 100 Mg Cap, 50 MG PO DAILY, CAP 11/04/21 Methotrexate (Methotrexate) 2.5 Mg Tab, 2.5 MG PO QWEEKLY, #8 TAB 11/04/21 Metoprolol Tartrate (Metoprolol Tartrate) 100 Mg Tab, 100 MG PO BID, TAB 11/04/21 Atorvastatin Calcium (Lipitor) 20 Mg Tab, 20 MG PO HS, TAB 11/04/21 Glipizide (Glipizide Xl) 5 Mg Tab, 5 MG PO BID, TAB 11/04/21 Duloxetine Hcl (Cymbalta) 60 Mg Cap, 60 MG PO DAILY, CAP 11/04/21 Albuterol Sulfate (Albuterol Sulfate) 2 Mg Tab, 90 MCG IN Q4HP PRN for FOR COUGH, MG 01/14/15 Methotrexate (Methotrexate) 2.5 Mg Tab, 6 TAB PO QWEEKLY, #24 TAB 1 Refill 01/14/15 Cholecalciferol (Vitamin D3) 1,000 Unit Cap, 1000 UNIT PO DAILY, CAP 01/14/15 Lactobacillus (ACIDOPHILUS) Cap, 2 MG PO DAILY, CAP 01/14/15 Vitamin B12 (Vitamin B-12) 1,000 Mcg/1 Ml Ij, 6 MCG PO DAILY 01/14/15 Omeprazole (PRILOSEC) 20 Mg Cap, 20 MG OR BID, CAP 01/14/15 Metoprolol Tartrate (Metoprolol Tartrate) 100 Mg Tab, 150 MG PO HS for 30 Days, MG 01/14/15 Flunisolide (Nasal) (Flunisolide) 0.025 % Spr, 1 SPRAY NA BID, #25 ML 3 Refills 01/14/15 Divalproex Sodium (Divalproex Sodium) 250 Mg Tab, 250 MG PO BID, TAB 01/14/15 Acetaminophen (Acetaminophen) 500 Mg Cap, 500 MG PO TIDP PRN for MILD PAIN for 30 Days, MG 01/14/15 Information Source: Patient Mode of Arrival: Ambulatory Severity: Moderate Timing: Hours Duration: Since onset Prehospital treatment: None Onset: At Rest Past Medical History PAST MEDICAL HISTORY: Arthritis, DM, High Lipids, HTN Surgical History (Other): Bilateral knee surgery Family History Family History: Reviewed,noncontributory to illness, No family hx of HTN Social History Smoker: Cigarettes, Less Than 1 Pack/Day Alcohol: Rarely Drugs: Other Lives In: Home Constitutional: denies: chills, diaphoresis, fatigue, fever, malaise, sweats, weakness, others EENTM: denies: blurred vision, double vision, ear bleeding, ear discharge, ear drainage, ear pain, ear ringing, eye pain, eye redness, hearing loss, mouth pain, mouth swelling, nasal discharge, nose bleeding, nose congestion, nose pain, photophobia, tearing, throat pain, throat swelling, voice changes, others Respiratory: denies: cough, hemoptysis, orthopnea, SOB at rest, shortness of breath, SOB with excertion, stridor, wheezing, others Cardiovascular: denies: chest pain, dizzy spells, diaphoresis, Dyspnea on exertion, edema, irregular heart beat, left arm pain, lightheadedness, palpitations, PND, syncope, others Gastrointestinal: denies: abdomen distended, abdominal pain, blood streaked bowels, constipated, diarrhea, dysphagia, difficulty swallowing, hematemesis, melena, nausea, poor appetite, poor fluid intake, rectal bleeding, rectal pain, vomiting, others Genitourinary: denies: burning, dysuria, flank pain, frequency, hematuria, incontinence, penile discharge, penile sore, pain, testicle pain, testicle swelling, urgency, others Neurological: denies: dizziness, fainting, headache, left sided numbness, left sided weakness, numbness, paresthesia, pre-existing deficit, right sided numbness, right sided weakness, seizure, speech problems, tingling, tremors, weakness, others Musculoskeletal: denies: back pain, gout, joint pain, joint swelling, muscle pain, muscle stiffness, neck pain, others Integumetry: denies: bruises, change in color, change in hair/nails, dryness, laceration, lesions, lumps, rash, wounds, others Allergic/Immunocompromised: denies: Difficulty Healing, Frequent Infections, Hives, Itching, others Hematologic/Lymphatic: denies: anemia, blood clots, easy bleeding, easy bruising, swollen glands, others Endocrine: denies: excessive hunger, excessive sweating, excessive thirst, excessive urination, flushing, intolerance to cold, intolerance to heat, unexplained weight gain, unexplained weight loss, others Psychiatric: denies: anxiety, bipolar disorder, depression, hopeless, panic disorder, schizophrenia, sleepless, suicidal, others All Other Systems: Reviewed and Negative Physical Exam General Appearance: Moderate Distress, Normal HEENT: Normal ENT Inspection, PERRL/EOMI Neck: Full Range of Motion, Non-Tender, Normal, Normal Inspection Respiratory: Chest Non-Tender, Lungs Clear, No Accessory Muscle Use, No Respiratory Distress, Normal Breath Sounds Cardiovascular: Irregular, No Edema, No JVD, No Murmur, No Gallop, Normal Peripheral Pulses Breast Exam: Deferred Gastrointestinal: No Organomegaly, Non Tender, No Pulsatile Mass, Normal Bowel Sounds, Soft Genitalia: Deferred Pelvic: Deferred Rectal: Deferred Extremities: No calf tenderness, Normal capillary refill, Normal inspection, Normal range of motion, Non-tender, No pedal edema Musculoskeletal : Apperance: Normal 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 Was a procedure done?: No CP Differential Dx Differential Diagnosis: A-fib, A-Flutter, Angina, Anxiety / Panic Attack, Atrial Dysrhythmia, Electrolyte Disorder X-Ray, Labs, Meds, VS Vital Signs Date Time Temp Pulse Resp B/P (MAP) Pulse Ox O2 Delivery O2 Flow Rate FiO2 07/09/24 15:45 98.4 57 16 184/100 (128) 95 Patient alert. Complaining of high blood pressure. Irregular heartbeat. Saturation pristine on room air. Has a PICC line in place for antibiotics for possible right hand cystic lesion. EKG does show changes. Cardiology consultation. Was given aspirin. Was given clonidine. Explained to the patient. Continue cardiac monitoring. Time of 1ST Reevaluation: 17:02 Reevaluation 1ST: Unchanged Patient Education/Counseling: Diagnosis, Treatment Family Education/Counseling: No Family Present Additional Information I reviewed the following notes from patient's past medical encounters: 05/15/24 for cellulitis of right hand The following tests were ordered, and results were reviewed by me: BMP, CBC Additional Information was gathered from interviewing the following independent historians: None I reviewed and agreed with the following test results read by other providers: None I discussed treatment and results with medical personnel. Departure 1 Departure Time of Disposition: 16:30 Impression: Primary Impression: ST segment changes on electrocardiogram Additional Impression: Hypertensive emergency Disposition: ADMITTED INPATIENT Admit to: Med Surg Condition: Guarded Critical Care Note Critical Care Time?: Yes (45 min-critical care time only) Stability Stability form required: No Heart Score Heart Score: Heart Score Response (Comments) Value History Moderate Suspicious 1 EKG Normal 0 Age >65 2 Risk Factors >3 or Hx ASHD 2 Troponin Normal limit 0 Total 5 I personally scribed for YOHAN ANTHONY MD ([email or web address]) on 07/09/24 at 16:07. Electronically submitted by Kael Franco ([email or web address]). I personally scribed for YOHAN ANTHONY MD ([email or web address]) on 07/09/24 at 16:07. Electronically submitted by Kael Franco ([email or web address]). YOHAN ANTHONY MD Jul 09, 2024 16:07
[2024-07-09 16:27] VITALS: BP 177/93; PULSE 61; RESP 16; TEMP 97.5; O2SAT 98
--- NOTE | 2024-07-09 16:31 | ECG ---
[facility] Test Date: 2024-07-09 Test Time: 16:02:20 Pat Name: WIL BLAND Department: ER Room: Gender: M Double Backer: GP : 1960 Requested By: YOHAN ANTHONY Order Number: [id number] Reading MD: Measurements Intervals [place] Rate: 57 P: 64 [place]: 200 QRS: 8 QRSD: 116 T: 14 QT: 535 QTc: 521 Interpretive Statements Sinus rhythm LVH with IVCD and secondary repol abnrm Prolonged QT interval Please click the below link to view image of tracing.
[2024-07-09] MEDS: cloNIDine HCL 0.1 MG TAB PO ONE (16:34)
[2024-07-09 17:16] LABS: Basophils # (auto) 0.1 10 ^3/uL (0-0.2); Basophils % (auto) 0.8 % (0.0-2.0); Eosinophils # (auto) 0.4 10 ^3/uL (0-0.8); Eosinophils % (auto) 6.1 % (0.0-7.0); Hematocrit 41.3 % (41.0-53.0); Hemoglobin 13.6 g/dL (13.5-17.5); Lymphocytes # (auto) 1.1 10 ^3/uL (0.4-5.4); Lymphocytes % (auto) 16.2 % (10.0-50.0); Mean Corpuscular Hemoglobin 30.7 pg (28.0-32.0); Mean Corpuscular Volume 92.9 fL (80.0-100.0); Monocytes # (auto) 0.7 10 ^3/uL (0-1.3); Monocytes % (auto) 9.5 % (0.0-12.0); Neutrophils # (auto) 4.6 10 ^3/uL (1.6-8.6); Neutrophils % (auto) 67.4 % (37.0-80.0); Platelet Count (auto) 287 10^3/uL (140-450); Red Blood Cells 4.45 10^6/uL (4.5-5.90); Red Cell Distribution Width 14.8 % (11.8-14.3); White Blood Cell 6.9 10^3/uL (4.4-10.8)
[2024-07-09 18:48] LABS: Sodium 140 mmol/L (136-145)
[2024-07-09 18:49] LABS: Anion Gap 6 (5-15); Carbon Dioxide 25 mmol/L (20-31)
[2024-07-09 18:55] LABS: BUN/Creatinine Ratio 17.5 (10.0-20.0); Blood Urea Nitrogen 20 mg/dL (9-23)
[2024-07-09] MEDS ORDERED: ALBUTEROL SULF 2.5 MG/0.5ML(0.5%) NEB SOLN NEB PRN (19:00)
[2024-07-09] MEDS ORDERED: DEXTROSE (50%) 50ML SYRG IV PRN (19:00)
[2024-07-09] MEDS ORDERED: hydrALAZINE HCL 20 MG/ML VL IV PRN (19:00)
[2024-07-09] MEDS ORDERED: ONDANSETRON HCL 4 MG/2 ML VIAL IV PRN (19:00)
[2024-07-09] MEDS ORDERED: ACETAMINOPHEN 325 MG TAB PO PRN (19:00)
[2024-07-09 19:01] LABS: Chloride 109 mmol/L (98-107); Glucose 114 mg/dL (74-106)
--- NOTE | 2024-07-09 20:48 | DVHHP2 ---
History of Present Illness Reason for Visit: High blood pressure History of Present Illness 63-year-old male presents for evaluation of elevated blood pressure. The patient reports a two week history of having elevated blood pressure. He reports having a boil to his right hand for which he was placed on antibiotics. He states that since then his blood pressure has been running high greater than 180 on a daily basis. Today his BP was 190/110. Denies headache or dizziness. No chest pain or shortness for breath. Past Medical History Dyslipidemia, hypertension, diabetes mellitus, arthritis Past Surgical History Bilateral knee surgery Family History Noncontributory Smoke: <1 pack per day ALCOHOL: occassional Drugs: None Lives: with Family Review of Systems Review of Systems Review of systems are currently negative otherwise addressed in HPI. Allergies: Coded Allergies: Sulfasalazine (Unverified Allergy, Intermediate, hematuria, 11/04/21) Adalimumab (Verified Allergy, Unknown, 01/13/15) Sulfa Antibiotics (Verified Allergy, Unknown, 02/14/16) Medications Current Medications Medications Dose Ordered Sig/Erica Route Start Time Stop Time Status Last Admin Dose Admin Hydralazine HCl 10 mg Q6HP PRN IV 07/09/24 19:00 Albuterol 2.5 mg Q6HPRN PRN NEB 07/09/24 19:00 Aspirin 81 mg DAILY PO 07/10/24 10:00 UNV Atorvastatin Calcium 20 mg HS PO 07/09/24 22:00 Divalproex Sodium 250 mg BID PO 07/09/24 22:00 Metoprolol Tartrate 100 mg BID PO 07/09/24 22:00 Lisinopril 20 mg DAILY PO 07/10/24 10:00 Diagnostic Test (Pha) 1 strip ACHS 07/09/24 22:00 Insulin Human Regular ACHS SC 07/09/24 22:00 Dextrose 50 ml UD PRN IV 07/09/24 19:00 Ondansetron HCl 4 mg Q4HP PRN IV 07/09/24 19:00 Acetaminophen 650 mg Q6HP PRN PO 07/09/24 19:00 Exam Vital Signs Vital Signs Date Time Temp Pulse Resp B/P (MAP) Pulse Ox O2 Delivery O2 Flow Rate FiO2 07/09/24 17:34 176/98 07/09/24 16:27 61 16 98 Room Air 07/09/24 16:27 97.5 97.5 Exam Gen: 63-year-old male in mild distress Skin: Warm, dry, normal color and texture, no rash. HEENT: Normocephalic atraumatic, mucous membranes moist and pink. Neck: Cervical and supraclavicular nodes normal without enlargement, trachea is midline, thyroid gland is normal without masses. Pulmonary: Clear to auscultation and percussion bilaterally. Cardiac: Regular rate and rhythm. No murmur Abdomen: Soft, nontender, nondistended, bowel sounds present all 4 quadrants, no guarding, no rigidity, no organomegaly. Extremities: No cyanosis, clubbing, no edema Neuro: Cranial nerves II through XII grossly intact, normal affect and speech, no focal motor deficits. Labs/Xrays Labs Test 07/09/24 17:01 Range/Units White Blood Count 6.9 4.4-10.8 10^3/uL Red Blood Count 4.45 L 4.5-5.90 10^6/uL Hemoglobin 13.6 13.5-17.5 g/dL Hematocrit 41.3 41.0-53.0 % Mean Corpuscular Volume 92.9 80.0-100.0 fL Mean Corpuscular Hemoglobin 30.7 28.0-32.0 pg Mean Corpuscular Hemoglobin Concent 33.0 32.0-36.0 g/dL Red Cell Distribution Width 14.8 H 11.8-14.3 % Platelet Count 287 140-450 10^3/uL Mean Platelet Volume 7.5 6.9-10.8 fL Neutrophils (%) (Auto) 67.4 37.0-80.0 % Lymphocytes (%) (Auto) 16.2 10.0-50.0 % Monocytes (%) (Auto) 9.5 0.0-12.0 % Eosinophils (%) (Auto) 6.1 0.0-7.0 % Basophils (%) (Auto) 0.8 0.0-2.0 % Neutrophils # (Auto) 4.6 1.6-8.6 10 ^3/uL Lymphocytes # (Auto) 1.1 0.4-5.4 10 ^3/uL Monocytes # (Auto) 0.7 0-1.3 10 ^3/uL Eosinophils # (Auto) 0.4 0-0.8 10 ^3/uL Basophils # (Auto) 0.1 0-0.2 10 ^3/uL Nucleated Red Blood Cells 0.0 % Sodium Level 140 136-145 mmol/L Potassium Level 4.0 3.5-5.1 mmol/L Chloride Level 109 H 98-107 mmol/L Carbon Dioxide Level 25 20-31 mmol/L Anion Gap 6 5-15 Blood Urea Nitrogen 20 9-23 mg/dL Creatinine 1.14 0.700-1.30 mg/dL Glomerular Filtration Rate Calc 71 >90 mL/min BUN/Creatinine Ratio 17.5 10.0-20.0 Serum Glucose 114 H 74-106 mg/dL Calcium Level 11.0 H 8.7-10.4 mg/dL Troponin I High Sensitivity 9 </=54 ng/L Assessment/Plan Assessment/Plan Assessment Hypertensive urgency Diabetes mellitus Plan Admit the patient to Med surge to the hospitalist Echocardiogram pending Cardiology consultation As needed antihypertensives Resume home medications Continue treatment per orders. Plan discussed with: Patient My Orders Orders - TIFFANIE BUCHANAN Procedure Category Date Status Time Hydralazine Injection PHA 07/09/24 In Process (Apresoline Inject 19:00 Albuterol Medneb PHA 07/09/24 In Process (Ventolin Medneb) 19:00 Aspirin Tablet PHA 07/10/24 Logged 10:00 Atorvastatin (Lipitor) PHA 07/09/24 In Process 22:[address] Tablet PHA 07/09/24 In Process (Depakote "Dr" Tabl 22:00 Metoprolol Tartrate PHA 07/09/24 In Process Tablet (Lopressor Ta 22:00 Lisinopril Tablet PHA 07/10/24 In Process (Zestril Tablet) 10:00 Basic Metabolic Panel LAB 07/10/24 Verified 04:00 Glucose Blood PHA 07/09/24 In Process (Accu-Chek Comfort 22:00 Insulin R (Human) PHA 07/09/24 In Process (Insulin R) 22:00 Dextrose 50% Syringe PHA 07/09/24 In Process 19:00 Admit ADMIT 07/09/24 Transmitted 18:54 Ondansetron Hcl PHA 07/09/24 In Process (Zofran) 19:00 Cardiac DIET 07/10/24 Transmitted Diet-2gna,Lofat,Lochol Breakfast Echo 2d Mode Cardiac US 07/09/24 Logged DOP 18:54 Condition: Stable FRAN 07/09/24 In Process 18:54 Acetaminophen Tablet PHA 07/09/24 In Process (Tylenol Tablet) 19:00 Bedrest With Bathroom FRAN 07/09/24 In Process Privileg 18:54 Date of Service: Jul 09, 2024 Billing Provider: TIFFANIE BUCHANAN Common Visit Codes: [id number] INP/OBS CARE (HIGH) TIFFANIE BUCHANAN Jul 09, 2024 20:48
[2024-07-09] MEDS ORDERED: ATORVASTATIN 20 MG TAB PO SCH (22:00)
[2024-07-09] MEDS ORDERED: ACCU-CHEK COMFORT CURVE STRIP VI SCH (22:00)
[2024-07-09] MEDS ORDERED: METOPROLOL TARTRATE 50 MG TAB PO SCH (22:00)
[2024-07-09] MEDS ORDERED: InsuLIN REG 1unit/0.01ml Soln (100units/ml) SC SCH (22:00)
[2024-07-10] MEDS ORDERED: ASPirin 81 mg TAB PO SCH (10:00)
[2024-07-10] MEDS ORDERED: LISINOPRIL 20 MG TAB PO SCH (10:00)
== END 2024-07-09 20:28 | disposition left against medical advice (07) | DRG 305 ==
LOC: ER 15:44 → OVERFLOW 18:54
PROVIDERS: ADMIT Nurse Practitioner; ATTEND Nurse Practitioner
DX: I16.1 Hypertensive emergency (principal); F17.210 Nicotine dependence, cigarettes, uncomplicated; Z53.29 Procedure and treatment not carried out because of patient's decision for other reasons; E11.9 Type 2 diabetes mellitus without complications; E78.5 Hyperlipidemia, unspecified; Z79.4 Long term (current) use of insulin; Z79.899 Other long term (current) drug therapy
CPT/HCPCS: 36415; 80048; 84484; 85025; 93005; 99291; G0378

== ENCOUNTER 2025-03-30 14:35 | Emergency (ER) | payer OTHER, MEDICARE, MEDICAID ==
[~2025-03-30] VITALS: Ht 188 cm; Wt 101.6 kg
--- NOTE | 2025-03-30 15:43 | ED.PDOC ---
Musculoskeletal HPI Comments 64-year-old male that presents to the ED for chief complaint of upper extremity pain. Patient states that he had a mechanical fall onto right forearm and wrist on Sunday two days prior. Patient states since he has been having associated swelling noted to the right forearm and wrist since. The patient otherwise has good range of motion. Patient otherwise denies any other symptoms. Patient otherwise has stable vitals in the ED Chief Complaint: Upper Extremity Time Seen by MD: 15:42 Primary Care Provider: [place] Reviewed Notes: Nurses Notes, Medications, Allergies Allergies: Coded Allergies: Sulfasalazine (Unverified Allergy, Intermediate, hematuria, 11/04/21) Adalimumab (Verified Allergy, Unknown, 01/13/15) Sulfa Antibiotics (Verified Allergy, Unknown, 02/14/16) Home Meds Reported Medications Topiramate (Topiramate) 50 Mg Tab, 3 TAB PO HS, #60 TAB 1 Refill 05/16/24 Ferrous Sulfate (Ferrous Sulfate) 325 Mg Tab, 325 MG PO EOD for 30 Days, MG 05/16/24 Artificial Tear Solution (ARTIFICIAL TEARS) Tears Mackenzie, 1 DROP EACHEYE QIDPRN for DRY EYES, ML 11/04/21 Flunisolide (Nasal) (Flunisolide) 0.025 % Spr, 0.025 % NA, SPRAY 11/04/21 Multiple Vitamin (Multivitamins) Tab, 1 OR, TAB 11/04/21 Dorsey-3 Fatty Acids (Fish Oil Dorsey-3 1000 mg) 1 Cap Cap, 1 CAP PO, CAP 11/04/21 Oxycodone Hcl (OxyCONTIN ER Tablet) 10 Mg Tb, 10 MG PO QID, TAB 11/04/21 Lisinopril (Lisinopril) 20 Mg Tab, 20 MG PO DAILY, TAB 11/04/21 Metformin Hydrochloride (Metformin Hcl) 500 Mg Tab, 500 MG PO BID, TAB 11/04/21 Aspirin (Aspir-81) 81 Mg Tab, 81 MG PO DAILY@BREAKFAST, TAB 11/04/21 Certolizumab Pegol (Cimzia) 200 Mg/Ml Kit, 1 ML SC bimonthly, KIT 11/04/21 Gabapentin (Gabapentin) 300 Mg Cap, 300 MG PO TID, #3 CAP 11/04/21 Benzoyl Peroxide-Hydrocortison (Benzolyl Peroxide Forte- 7.5-1 %) 1 Lot Lot, 1 LOT EX, BOTTLE 11/04/21 Chlorhexidine Gluconate (GNP ANTISEPTIC SKIN CLEAN) 4 % Mackenzie, 4 % EX, ML 11/04/21 Albuterol Sulfate (VENTOLIN MDI) 90 Mcg Ih, 90 MCG IN PRN, INH 11/04/21 Fluticasone Propionate (FLOVENT HFA 110Mcg INH) 110 Mcg Ih, 50 MCG IN DAILY, INH 11/04/21 Lidocaine (LIDODERM 5% TOPICAL PATCH) 1 Patch Ph, 1 PATCH TOP DAILY, PATCH 11/04/21 Insulin Glargine (Lantus) 100 Unit/Ml Inj, 25 UNIT SC DAILY, INJ 11/04/21 Doxycycline Monohydrate (Doxycycline Monohydrate) 100 Mg Cap, 50 MG PO DAILY, CAP 11/04/21 Methotrexate (Methotrexate) 2.5 Mg Tab, 2.5 MG PO QWEEKLY, #8 TAB 11/04/21 Metoprolol Tartrate (Metoprolol Tartrate) 100 Mg Tab, 100 MG PO BID, TAB 11/04/21 Atorvastatin Calcium (Lipitor) 20 Mg Tab, 20 MG PO HS, TAB 11/04/21 Glipizide (Glipizide Xl) 5 Mg Tab, 5 MG PO BID, TAB 11/04/21 Duloxetine Hcl (Cymbalta) 60 Mg Cap, 60 MG PO DAILY, CAP 11/04/21 Albuterol Sulfate (Albuterol Sulfate) 2 Mg Tab, 90 MCG IN Q4HP PRN for FOR COUGH, MG 01/14/15 Methotrexate (Methotrexate) 2.5 Mg Tab, 6 TAB PO QWEEKLY, #24 TAB 1 Refill 01/14/15 Cholecalciferol (Vitamin D3) 1,000 Unit Cap, 1000 UNIT PO DAILY, CAP 01/14/15 Lactobacillus (ACIDOPHILUS) Cap, 2 MG PO DAILY, CAP 01/14/15 Vitamin B12 (Vitamin B-12) 1,000 Mcg/1 Ml Ij, 6 MCG PO DAILY 01/14/15 Omeprazole (PRILOSEC) 20 Mg Cap, 20 MG OR BID, CAP 01/14/15 Metoprolol Tartrate (Metoprolol Tartrate) 100 Mg Tab, 150 MG PO HS for 30 Days, MG 01/14/15 Flunisolide (Nasal) (Flunisolide) 0.025 % Spr, 1 SPRAY NA BID, #25 ML 3 Refills 7/23/15 Divalproex Sodium (Divalproex Sodium) 250 Mg Tab, 250 MG PO BID, TAB 01/14/15 Acetaminophen (Acetaminophen) 500 Mg Cap, 500 MG PO TIDP PRN for MILD PAIN for 30 Days, MG 01/14/15 Information Source: Patient Mode of Arrival: Ambulatory Brought in by: Self Past Medical History PAST MEDICAL HISTORY: Arthritis, DM, High Lipids, HTN Family History Family History: Reviewed,noncontributory to illness, No family hx of HTN Social History Smoker: Cigarettes, Less Than 1 Pack/Day Alcohol: Rarely Drugs: Other Lives In: Home Constitutional: denies: chills, diaphoresis, fatigue, fever, malaise, sweats, weakness, others EENTM: denies: blurred vision, double vision, ear bleeding, ear discharge, ear drainage, ear pain, ear ringing, eye pain, eye redness, hearing loss, mouth pain, mouth swelling, nasal discharge, nose bleeding, nose congestion, nose pain, photophobia, tearing, throat pain, throat swelling, voice changes, others Respiratory: denies: cough, hemoptysis, orthopnea, SOB at rest, shortness of breath, SOB with excertion, stridor, wheezing, others Cardiovascular: denies: chest pain, dizzy spells, diaphoresis, Dyspnea on exertion, edema, irregular heart beat, left arm pain, lightheadedness, palpitations, PND, syncope, others Gastrointestinal: denies: abdomen distended, abdominal pain, blood streaked bowels, constipated, diarrhea, dysphagia, difficulty swallowing, hematemesis, melena, nausea, poor appetite, poor fluid intake, rectal bleeding, rectal pain, vomiting, others Genitourinary: denies: burning, dysuria, flank pain, frequency, hematuria, incontinence, penile discharge, penile sore, pain, testicle pain, testicle swelling, urgency, others Neurological: denies: dizziness, fainting, headache, left sided numbness, left sided weakness, numbness, paresthesia, pre-existing deficit, right sided numbne ss, right sided weakness, seizure, speech problems, tingling, tremors, weakness, others Musculoskeletal: reports: joint pain (Right forearm and wrist), joint swelling (Right forearm and wrist); denies: back pain, gout, muscle pain, muscle stiffness, neck pain, others Integumetry: denies: bruises, change in color, change in hair/nails, dryness, laceration, lesions, lumps, rash, wounds, others Allergic/Immunocompromised: denies: Difficulty Healing, Frequent Infections, Hives, Itching, others Hematologic/Lymphatic: denies: anemia, blood clots, easy bleeding, easy bruising, swollen glands, others Endocrine: denies: excessive hunger, excessive sweating, excessive thirst, excessive urination, flushing, intolerance to cold, intolerance to heat, unexplained weight gain, unexplained weight loss, others Psychiatric: denies: anxiety, bipolar disorder, depression, hopeless, panic disorder, schizophrenia, sleepless, suicidal, others All Other Systems: Reviewed and Negative Physical Exam General Appearance: No Apparent Distress, Normal HEENT: Normal ENT Inspection, Pharynx Normal, TMs Normal Neck: Full Range of Motion, Non-Tender, Normal, Normal Inspection Respiratory: Chest Non-Tender, Lungs Clear, No Accessory Muscle Use, No Respira tory Distress, Normal Breath Sounds Cardiovascular: No Edema, No JVD, No Murmur, No Gallop, Normal Peripheral Pulses, Regular Rate/Rhythm Breast Exam: Deferred Gastrointestinal: No Organomegaly, Non Tender, No Pulsatile Mass, Normal Bowel Sounds, Soft Genitalia: Deferred Pelvic: Deferred Rectal: Deferred Extremities: No calf tenderness, Normal capillary refill, Normal inspection, Normal range of motion, Non-tender, No pedal edema Musculoskeletal : Apperance: Normal Neurologic: Alert, director oracle database II-XII nml as Tested, No Motor Deficits, Normal Affect, Normal Mood, No Sensory Deficits Cerebellar Function: Normal Reflexes: Normal Skin: Dry, Normal Color, Warm Lymphatic: No Adenopathy Was a procedure done? Was a procedure done?: No Differential Diagnosis EXT Differential Diagnosis: Fracture, Sprain, Dislocation, Contusion, Strain X-Ray, Labs, Meds, VS Vital Signs Date Time Temp Pulse Resp B/P (MAP) Pulse Ox O2 Delivery O2 Flow Rate FiO2 03/30/25 15:44 60 20 97 Room Air 03/30/25 15:44 97.5 60 20 120/80 (93) 97 97.5 03/30/25 14:36 97.7 61 16 123/84 97 97.7 [facility] [address] [address] Ph: [phone] DIAGNOSTIC IMAGING Diagnostic Imaging Report : [id number] Signed PATIENT: WIL BLAND AACCT: [id number] UNIT: [id number] : 1960 LOC: ER ROOM / BED: / AGE / SEX: 64 / M ADM STATUS: REG ER SERVICE [id number] ORDERING PHYSICIAN: ALVARADO SOTO NP PROCEDURE(s): RWRI - R WRIST 3+ VIEW XRAY REASON: R/o fracture ORDER NUMBER(s): [id number], ACCESSION NUMBER(s): [id number] CLINICAL INDICATION: R/o fracture TECHNIQUE: 3 radiographic views of the right wrist were obtained. Comparison: None FINDINGS/IMPRESSION: Appears to be healing or healed fracture distal 5th metacarpal correlate clinically for tenderness over the distal 5th metacarpal. Appears to be nondisplaced impacted transverse fracture through the distal radius. Correlate for clinical tenderness in this area. ATED BY: KRISHNA OROSCO Jr., DO DICTATED DATE/TIME: 03/30/251540 SIGNED BY: KRISHNA OROSCO Jr., SIGNED DATE/TIME: 03/30/251540 CC: X-Ray, Labs, Meds, VS Comment Patient arrives alert and oriented, ABC's intact, afebrile, vital signs stable, saturating well in room air Diagnostic imaging ordered by me and results interpreted by radiology : PROCEDURE(s): RWRI - R WRIST 3+ VIEW XRAY REASON: R/o fracture ORDER NUMBER(s): [id number], ACCESSION NUMBER(s): [id number] CLINICAL INDICATION: R/o fracture TECHNIQUE: 3 radiographic views of the right wrist were obtained. Comparison: None FINDINGS/IMPRESSION: Appears to be healing or healed fracture distal 5th metacarpal correlate clinically for tenderness over the distal 5th metacarpal. Appears to be nondisplaced impacted transverse fracture through the distal radius. Correlate for clinical tenderness in this area. Splint ordered. Neurovascular sensation intact on re-evaluation. Advised to take [id number] ibuprofen as needed. Patient is stable for discharge at this time. External notes reviewed. Test results and diagnostic imaging interpreted. All diagnostic findings, discharge care, education and instructions provided Follow-up with PCP in 2 to 3 days Patient verbalized understanding and agreed to treatment plan Vital signs stable, afebrile, no acute distress noted Patient ambulatory with strong steady gait Advised to return precautions for any new or worsening symptoms, return to ER immediately for re-evaluation Patient is aware that the purpose of this visit was for an acute medical emergency requiring emergent stabilization. Chronic conditions, including malignancies have not been ruled out. Patient is instructed to follow up with PCP as directed and discharge instructions for continued care and workup. If unable to arrange follow-up, patient is to return to the emergency department for reassessment. Patient (parent or legal guardian if applicable) was given verbal and written discharge instructions and acknowledges understanding. Additional MDM Review of External, Non-ED records: External records reviewed. Discussion with independent historian (EMS, family) history obtained from the patient/parents (if applicable) at bedside Chronic conditions affecting care: None Social determinants of health affecting care: None Consideration of admission (observation or admission): I considered escalation of care to admission for this patient, however given the reassuring workup, the patient is safe for outpatient management. Discussion with the Radiology: No Tests considered but not performed: Prescription medication considered but not given: Time of 1ST Reevaluation: 16:15 Reevaluation 1ST: Unchanged Time of 2ND Reevaluation: 16:19 Reevaluation 2ND: Improved Patient Education/Counseling: Diagnosis, Treatment Family Education/Counseling: No Family Present Departure 1 Departure Time of Disposition: 16:20 Impression: Primary Impression: Distal radius fracture, right Qualified Codes: S52.501A - Unspecified fracture of the lower end of right radius, initial encounter for closed fracture Additional Impression: Metacarpal bone fracture Qualified Codes: S62.346A - Nondisplaced fracture of base of fifth metacarpal bone, right hand, initial encounter for closed fracture Disposition: 01 HOME / SELF CARE / HOMELESS Condition: Stable Critical Care Note Critical Care Time?: No Stability Stability form required: No Heart Score Heart Score: Heart Score Response (Comments) Value History N/A 0 EKG N/A 0 Age N/A 0 Risk Factors N/A 0 Troponin N/A 0 Total 0 I personally scribed for ALVARADO SOTO NP ([email or web address]) on 03/30/25 at 15:43. Electronically submitted by Stephan Berrios ([email or web address]). I personally scribed for ALVARADO SOTO NP ([email or web address]) on 03/30/25 at 15:46. Elec tronically submitted by Stephan Berrios ([email or web address]). ALVARADO SOTO NP Mar 30, 2025 15:43
[2025-03-30 15:44] VITALS: BP 120/80; PULSE 60; RESP 20; TEMP 97.5; O2SAT 97
== END 2025-03-30 17:17 | disposition home or self-care (01) ==
LOC: ER 14:37
DX: S62.346A Nondisplaced fracture of base of fifth metacarpal bone, right hand, initial encounter for closed fracture (principal); S52.501A Unspecified fracture of the lower end of right radius, initial encounter for closed fracture; F17.210 Nicotine dependence, cigarettes, uncomplicated; E11.9 Type 2 diabetes mellitus without complications; I10 Essential (primary) hypertension; Z79.899 Other long term (current) drug therapy; Z88.2 Allergy status to sulfonamides; W19.XXXA Unspecified fall, initial encounter; Y93.89 Activity, other specified; Y92.89 Other specified places as the place of occurrence of the external cause; Y99.8 Other external cause status
CPT/HCPCS: 29125; 73110